=== PATIENT | female | born 1945 | race Caucasian/White ===

== ENCOUNTER 2023-05-28 11:26 | Inpatient (IN) | payer MEDICARE, SELFPAY ==
[2023-05-28] VITALS (38 sets, daily range): BP systolic 150–177; BP diastolic 69–82; PULSE 74–105; RESP 18–31; TEMP 36.7–37; O2SAT 93–100
--- NOTE | ~2023-05-28 | XR_ITS ---
EXAMINATION: XR chest 1V portable DATE: 05/28/2023 13:15 INDICATION: Cough. Shortness of breath. TECHNIQUE: A single frontal view of the chest was obtained. COMPARISON: None. FINDINGS: There are lucencies in the lungs, consistent with emphysema. Heather B lines are noted, cons istent with mild pulmonary edema. There is a small right pleural effusion. No pneumothorax. The heart size is normal. Median sternotomy wires and mediastinal surgical clips are seen, likely from prior c oronary artery bypass grafting. IMPRESSION: 1. Mild pulmonary edema. 2. Emphysema. 3. Small right pleural effusion. Reviewed, dictated and finalized at location A.
--- NOTE | 2023-05-28 12:22 | ED.URI ---
HPI - URI/Sore Throat General Chief Complaint: Upper Respiratory Infection Stated Complaint: poss pneumonia Time Seen by Provider: 05/28/23 11:48 Source: patient, EMS, RN notes reviewed and old records reviewed Mode of arrival: EMS History of Present Illness HPI Narrative: This is a 77 year old female with history of COPD, chronic respiratory failure, 2 L NC , hypertension who presents for evaluation of shortness of breath. She reports shortness of breath since . She reports it is getting harder to breath. She reports cough, nausea and congestion. She also reports she was told at nursing facility that she had a fever. She denies chest pain. MD elicited complaint: cough Pertinent past history: COPD Related Data Home Medications Medication Instructions Recorded Confirmed albuterol sulfate 90 mcg/actuation 1 inh inhalation Q4-6H PRN 06/30/22 05/28/23 breath activated powder Shortness Of Breath Or Wheezing inhaler,sensor (Proair Digihaler) aspirin 81 mg tablet,delayed 81 mg PO DAILY 06/30/22 05/28/23 release fluticasone fur. 100 mcg-umeclid 1 inh inhalation DAILY 06/30/22 05/28/23 62.5 mcg-vilant 25 mcg inhalat.powder (Trelegy Ellipta) levothyroxine 50 mcg capsule 50 mcg PO DAILY 06/30/22 05/28/23 metoprolol tartrate 25 mg tablet 12.5 mg PO BID 06/30/22 05/28/23 ondansetron 8 mg disintegrating 8 mg PO Q12H PRN Nausea And 06/30/22 05/28/23 tablet Vomiting vilazodone 20 mg tablet (Viibryd) 20 mg PO DAILY 06/30/22 05/28/23 diphenoxylate-atropine 2.5 1 tablet PO TID PRN Diarrhea 05/28/23 05/28/23 mg-0.025 mg tablet (Lomotil) Allergies Allergy/AdvReac Type Severity Reaction Status Date / Time amoxicillin AdvReac Intermediate Unknown Verified 05/28/23 11:36 levofloxacin [From Levaquin] AdvReac Intermediate Unknown Verified 05/28/23 11:36 Sulfa (Sulfonamide AdvReac Intermediate Unknown Verified 05/28/23 11:36 Antibiotics) voriconazole Allergy Severe Hallucinati Uncoded 05/28/23 11:36 ng potassium clavulanate AdvReac Intermediate Unknown Uncoded 05/28/23 11:36 Review of Systems Constitutional: Constitutional: Reports fever(s) and Denies weakness Cardiovascular: Cardiovascular: Denies syncope, Denies rapid heart rate, Denies irregular heart rhythm, Denies leg edema and Reports dyspnea Respiratory: Respiratory: Denies chest congestion, Reports cough, Denies hemoptysis, Denies excessive phlegm production and Reports dyspnea Gastrointestinal: Gastrointestinal: Denies abdominal pain, Denies hematochezia, Denies diarrhea, Reports nausea and Denies vomiting Genitourinary: Genitourinary: Denies hematuria and Denies dysuria Musculoskeletal: Musculoskeletal: Denies joint swelling, Denies loss of height and Denies muscle weakness Neurologic: Denies syncope, Denies focal weakness and Denies weakness PMFSH Past Medical History Medical History Anxiety Arthritis Chronic obstructive pulmonary disease Coronary artery disease Generalized osteoarthritis of multiple sites Hypertension Hypothyroidism Irritable bowel syndrome Osteoporosis, post-menopausal Systemic lupus erythematosus Surgical History Surgical History (Updated 05/28/23 @ 15:44 by Maryana Sterling PA-C) History of cataract extraction History of coronary artery bypass graft x 3 Family History Family History Father Carcinoma of colon Diabetes mellitus Hypertension Depression Mother Hypertension Diabetes mellitus Thyroid disorder Sibling Breast cancer Diabetes mellitus Social History Social History (Updated 05/28/23 @ 15:45 by Maryana Sterling PA-C) Social History: Surrogate medical decision maker: Code status: Full code. Smoking status: Unknown if ever smoked Alcohol intake: former Substance use: never Substance use type: does not use Lack of Transportation: No Lack of Food: Never True
--- NOTE | 2023-05-28 12:24 | ECG_ITS ---
Measurements Intervals [place] Rate: 81 P: 104 LA: 137 QRS: 65 QRSD: 90 T: 68 QT: 388 QTc: 451 Interpretive Statements SINUS RHYTHM NO PREVIOUS ECG AVAILABLE FOR COMPARISON Electronically Signed On 05-28-2023 13:03:33 CDT by Jadon Harper M.D.
[2023-05-28] MEDS: IPRATROPIUM BR 0.02% INH SOLN 0.5 MG/2.5 ML VIAL INHALATION (12:30)
[2023-05-28] MEDS: ALBUTEROL SULFATE NEB 2.5 MG/3 ML INH INHALATION ×2 (12:31→20:05)
[2023-05-28 12:49] LABS: Alveolar/Arterial O2 Gradient 58.7 mmHg; Base Excess ABG 4.3 mEq/l (+/-2.0); Carboxyhemoglobin 0.1 % THb (0-2.0); Fractional Inspired Oxygen 28 %; HCO3 ABG 28.5 mEq/l (22.0-26.0); Methemoglobin ABG 0.2 %THb (0-1.5); Oxygen Content ABG 15.2 %vol (16.0-22.0); Oxygen Saturation ABG 97.4 % (95.0-100.0); Oxyhemoglobin 96.4 % THb (90.0-100.0); PO2 ABG 92.6 mmHg (80.0-100.0); PO2 FiO2 Ratio Arterial Blood 3.31 %; Reduced Hemoglobin 3.3 %THb (0-5.0); Total Hemoglobin 11.1 g/dL (12.0-18.0)
[2023-05-28 12:49] LABS: Basophils Percent Auto 0.9 % (0.2-1.2); Eosinophils Absolute Auto 0.1 K/mm3 (0-0.3); Eosinophils Percent Auto 1.3 % (0-4.4); Hematocrit 33.9 % (37.0-47.0); Hemoglobin 10.6 g/dL (12.0-15.0); Immature Granulocyte Absolute 0.02 K/mm3 (0.00-0.031); Immature Granulocyte Percent A 0.4 % (0-0.5); Lymphocytes Percent Auto 15.4 % (18.3-44.2); Mean Corpuscular HGB Conc 31.3 g/dl (32-36); Mean Corpuscular Hemoglobin 27.7 pg (26-34); Mean Corpuscular Volume 88.7 fl (80-100); Monocytes Absolute Auto 0.6 K/mm3 (0.1-0.6); Monocytes Percent Auto 12.1 % (2.6-8.5); Neutrophils Absolute Auto 3.2 K/mm3 (1.3-6.7); Neutrophils Percent Auto 69.9 % (45.5-73.1); Platelet Count Result 248 k/mm3 (150-375); Red Blood Count 3.82 M/mm3 (4.2-5.4); Red Cell Distribution Width 14.5 % (11.5-14.5); White Blood Count 4.6 K/mm3 (4.5-10.0)
[2023-05-28 12:50] LABS: Device NASAL CANNULA; Site Drawn LEFT BRACHIAL
[2023-05-28 12:59] LABS: Alanine Aminotransferase 14 U/L (6-35); Albumin Level 3.7 g/dL (3.5-5.1); Alkaline Phosphatase 88 U/L (38-126); Anion Gap 7 mmol/L (8-16); Aspartate Amino Transferase 34 U/L (14-36); Bilirubin,Total 0.7 mg/dL (0.2-1.3); Blood Urea Nitrogen 12 mg/dL (7-17); Calcium 8.5 mg/dL (8.4-10.2); Carbon Dioxide 31 mmol/L (22-30); Chloride 97 mmol/L (98-107); Estimated CRCL calculation 70 ml/min; Estimated Glomerular Filt Rate > 60; Glucose 87 mg/dL (65-110); Lipase 92 U/L (23-300); Potassium 3.5 mmol/L (3.4-5.0); Sodium 135 mmol/L (137-145)
[2023-05-28 13:01] LABS: Prothrombin Time 13.9 Seconds (11.1-14.7)
[2023-05-28 13:02] LABS: Partial Thromboplastin Time 28.2 SECONDS (22.3-36.8)
[2023-05-28 13:10] LABS: NT Pro B Type Natriuretic Pept 1880 pg/mL (19.9-100); Troponin I 0.015 ng/mL (0.000-0.034)
[2023-05-28 13:24] LABS: Influenza A QL RT-PCR Negative (Negative); Influenza B QL RT-PCR Negative (Negative); SARS-CoV-2 RNA PCR Positive (Negative)
--- NOTE | 2023-05-28 15:38 | PM.IMHP ---
H&P: HPI History of Present Illness Date/Time: 05/28/23 17:15 Chief Complaint: Shortness of breath, pleural effusion. Narrative: This is a 77-year-old female with hypertension, hyperlipidemia, coronary artery disease, hypothyroidism, lupus, chronic obstructive pulmonary disease, chronic respiratory failure on 2 L nasal cannula, and anxiety who presented to the emergency department via EMS from [facility] for evaluation of shortness of breath and pleural effusion. The patient provides the following history. She has not been feeling well for several days with body aches, nonproductive cough, chest congestion, and nausea. She has felt increasingly short of breath on lesser and lesser exertion the last several days which prompted a chest x-ray to be done at the facility. She was sent in for evaluation after the chest x-ray reportedly showed a large right-sided pleural effusion. She was afebrile on arrival with stable vital signs. SARS-CoV-2 by PCR was positive. A repeat chest x-ray done at this facility showed mild pulmonary edema, emphysema, and a small right pleural effusion. Labs were significant for a troponin of 0.015, proBNP 1880, and WBC count of 4.6. EKG shows sinus rhythm without acute ST segment changes. She was given a nebulizer treatment in the ED and furosemide 40 mg IV x1 with some improvement in her shortness of breath and she is being admitted in this setting for further treatment. Review of Systems Review of Systems: Twelve systems were reviewed and are negative except for as per HPI. [facility] Past Medical History Medical History (Updated 05/28/23 @ 23:34 by Maryana Sterling PA-C) Anxiety Arthritis Chronic obstructive pulmonary disease Chronic respiratory failure with hypoxia, on home oxygen therapy Coronary artery disease Generalized osteoarthritis of multiple sites Hypertension Hypothyroidism Irritable bowel syndrome Osteoporosis, post-menopausal Systemic lupus erythematosus Surgical History Surgical History History of cataract extraction History of coronary artery bypass graft x 3 Family History Family History Father Carcinoma of colon Diabetes mellitus Hypertension Depression Mother Hypertension Diabetes mellitus Thyroid disorder Sibling Breast cancer Diabetes mellitus Social History Social History (Updated 05/28/23 @ 23:39 by Maryana Sterling PA-C) Social History: Surrogate medical decision maker: Manoj Cramer. Code status: Do not resuscitate. Smoking status: Former smoker Alcohol intake: former Substance use: never Substance use type: does not use Lack of Transportation: No Lack of Food: Never True Current Housing: I Have Housing Concerned About Future Housing: No Difficulty Paying Gas/Electric Bills: No Difficulty Paying for Meds: No Currently Unemployed: No Education: High School Diploma/GED Difficulty w/ Childcare or Family Care: No Additional living arrangements comments: for nearly 10 years. She has 1 daughter but they are out of touch. Currently at [facility]. 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 Spiritual care concerns: No Meds Home Medications and Allergies Home Medications Medication Instructions Recorded Confirmed Type albuterol sulfate 90 mcg/actuation 1 inh inhalation Q4-6H PRN 06/30/22 05/28/23 History breath activated powder Shortness Of Breath Or Wheezing inhaler,sensor (Proair Digihaler) aspirin 81 mg tablet,delayed 81 mg PO DAILY 06/30/22 05/28/23 History release fluticasone fur. 100 mcg-umeclid 1 inh inhalation DAILY 06/30/22 05/28/23 History 62.5 mcg-vilant 25 mcg inhalat.powder (Trelegy Ellipta) hydroxychloroquine 200 mg tablet 400 mg PO DAILY #180 tabs 06/30/22 05/28/23 Rx (Plaquenil) levothyroxine 50 mcg capsule
[2023-05-28] MEDS: FUROSEMIDE INJ 40 MG/4 ML VIAL IV PUSH (20:41)
[2023-05-28] MEDS: METOPROLOL TARTRATE 12.5 MG TABLET PO (22:40)
[2023-05-29] VITALS (19 sets, daily range): BP systolic 147–158; BP diastolic 55–78; PULSE 65–100; RESP 14–20; TEMP 36.6–37.3; O2SAT 98–99; BMI 18.1
[2023-05-29] MEDS: ACETAMINOPHEN 325 MG TABLET 650 MG PO (00:24)
[2023-05-29] MEDS: DEXAMETHASONE 2 MG TABLET 6 MG PO ×2 (00:25→09:05)
[2023-05-29] MEDS: hydrOXYzine HCL 10 MG TABLET PO ×2 (00:25→17:21)
[2023-05-29] MEDS: REMDESIVIR 200 MG/NS 250 ML 200 MG/250 ML BAG 250 MG IVPB (01:17)
[2023-05-29] MEDS: ALBUTEROL SULFATE NEB 2.5 MG/3 ML INH INHALATION ×4 (01:45→20:25)
[2023-05-29] MEDS: LEVOTHYROXINE SODIUM 50 MCG TABLET PO (05:21)
[2023-05-29 05:26] LABS: Basophils Percent Auto 0.2 % (0.2-1.2); Hematocrit 33.8 % (37.0-47.0); Hemoglobin 10.5 g/dL (12.0-15.0); Immature Granulocyte Absolute 0.03 K/mm3 (0.00-0.031); Immature Granulocyte Percent A 0.7 % (0-0.5); Lymphocytes Percent Auto 11.7 % (18.3-44.2); Mean Corpuscular HGB Conc 31.1 g/dl (32-36); Mean Corpuscular Hemoglobin 27.6 pg (26-34); Mean Corpuscular Volume 88.7 fl (80-100); Monocytes Absolute Auto 0.1 K/mm3 (0.1-0.6); Neutrophils Absolute Auto 3.6 K/mm3 (1.3-6.7); Neutrophils Percent Auto 84.4 % (45.5-73.1); Platelet Count Result 245 k/mm3 (150-375); Red Blood Count 3.81 M/mm3 (4.2-5.4); Red Cell Distribution Width 14.4 % (11.5-14.5); White Blood Count 4.3 K/mm3 (4.5-10.0)
[2023-05-29 05:39] LABS: Alanine Aminotransferase 13 U/L (6-35); Albumin Level 3.6 g/dL (3.5-5.1); Alkaline Phosphatase 78 U/L (38-126); Anion Gap 5 mmol/L (8-16); Aspartate Amino Transferase 24 U/L (14-36); Bilirubin,Total 0.5 mg/dL (0.2-1.3); Blood Urea Nitrogen 15 mg/dL (7-17); CRP 3.6 mg/dL (<1.0); Carbon Dioxide 35 mmol/L (22-30); Chloride 96 mmol/L (98-107); Estimated CRCL calculation 55 ml/min; Estimated Glomerular Filt Rate > 60; Glucose 162 mg/dL (65-110); Lactate Dehydrogenase 247 U/L (120-246); Potassium 3.4 mmol/L (3.4-5.0); Sodium 136 mmol/L (137-145)
[2023-05-29 06:11] LABS: Thyroid Stimulating Hormone Reflex 0.481 uIU/mL (0.465-4.68)
[2023-05-29] MEDS: FLUTICASONE/UMECLIDIN/VILANTER 100-62.5-25 MCG ELLIPTA 1 PUFF INHALATION (08:13)
[2023-05-29] MEDS: HYDROXYCHLOROQUINE SULFATE 200 MG TABLET 400 MG PO (09:04)
[2023-05-29] MEDS: ASPIRIN 81 MG ENTERIC TABLET PO (09:05)
[2023-05-29] MEDS: METOPROLOL TARTRATE 12.5 MG TABLET PO ×2 (09:05→21:18)
[2023-05-29] MEDS: FUROSEMIDE INJ 40 MG/4 ML VIAL IV PUSH (09:05)
--- NOTE | 2023-05-29 12:23 | PM.IMPN ---
Progress Note: A&P Assessment and Plan (1) COVID: Code(s): U07.1 - COVID-19 Status: Acute Assessment and Plan: Place in COVID19 isolation precautions, cardiac monitoring, and continuous pulse ox Chest x-ray with mild pulmonary edema, emphysema and small pleural effusion Oxygen via NC; wean as tolerated. Keep spO2 greater than 91% Pt is a candidate for Remdesivir and Dexamethasone, continue treatment according to suggested guidelines. Remdesivir 200 mg IV x1, then 100 mg IV x4 days, dexamethasone 6 mg IV daily x 10 days, or until discharge Albuterol neb q.6 hours PPI GI prophylaxis (2) Pulmonary edema: Code(s): J81.1 - Chronic pulmonary edema Status: Acute Assessment and Plan: chest x-ray revealing mild pulmonary edema. Patient given 2 rounds of IV Lasix with improvement of her breathing. BNP 1880 (3) Chronic obstructive pulmonary disease: Code(s): J44.9 - Chronic obstructive pulmonary disease, unspecified Status: Acute Assessment and Plan: Patient does not appear in active exacerbation. She chronically wears 2 L of oxygen (4) Systemic lupus erythematosus: Code(s): M32.9 - Systemic lupus erythematosus, unspecified Status: Acute Assessment and Plan: hydroxychloroquine continued (5) Hypothyroidism: Code(s): E03.9 - Hypothyroidism, unspecified Status: Acute Assessment and Plan: continue Synthroid (6) Coronary artery disease: Code(s): I25.10 - Atherosclerotic heart disease of [place] coronary artery without angina pectoris Status: Acute Assessment and Plan: continue aspirin Subjective Date/time seen: 05/29/23 12:23 Interval history: Patient states that she feels as if she is breathing better today although she does have chronic shortness of breath and on 2 L of oxygen home. She states that she uses a wheelchair and/or walker for mobility. Patient does have a chronic cough that is productive. She states the sputum is typically white or clear in this is not changed. She is not appear overtly ill and is in good spirits today. Will order PT and OT for her. Exam Narrative: GENERAL: Comfortable, no acute distress HENMT: moist mucous membranes EYES: EOM intact b/l NECK: no lymphadenopathy RESPIRATORY: distant breath sounds throughout CARDIO: RRR GI: soft, nontender, bowel sounds present SKIN: no rashes EXTREMITIES: no edema, redness or tenderness Objective Data Vital Signs Vital Signs: Vital Signs - 24 hr 05/28/23 12:43 05/28/23 13:00 05/28/23 12:30 Temperature Pulse Rate 82 99 90 Respiratory Rate 27 H 24 H 20 Blood Pressure Pulse Oximetry Oxygen Delivery Oxygen Flow Rate Fraction of Inspired Oxygen 05/28/23 12:45 05/28/23 13:00 05/28/23 17:17 Temperature Pulse Rate 94 101 H 103 H Respiratory Rate 24 H Blood Pressure Pulse Oximetry 100 99 Oxygen Delivery Oxygen Flow Rate Fraction of Inspired Oxygen 05/28/23 17:27 05/28/23 17:27 05/28/23 13:15 Temperature Pulse Rate 83 100 Respiratory Rate 28 H Blood Pressure Pulse Oximetry 100 Oxygen Delivery Nasal Cannula Oxygen Flow Rate 2 Fraction of Inspired Oxygen 05/28/23 13:33 05/28/23 13:34 05/28/23 13:37 Temperature Pulse Rate 105 H 105 H 95 Respiratory Rate 19 29 H 30 H Blood Pressure Pulse Oximetry 96 95 Oxygen Delivery Oxygen Flow Rate Fraction of Inspired Oxygen 05/28/23 13:40 05/28/23 13:45 05/28/23 14:00 Temperature Pulse Rate 98 96 96 Respiratory Rate 25 H 31 H 30 H Blood Pressure 154/72 H Pulse Oximetry 99 99 93 Oxygen Delivery Oxygen Flow Rate Fraction of Inspired Oxygen 05/28/23 14:01 05/28/23 14:15 05/28/23 14:21 Temperature Pulse Rate 95 92 90 Respiratory Rate 24 H 27 H 27 H Blood Pressure Pulse Oximetry 97 Oxygen Delivery Oxygen Flow Rate Fraction
--- NOTE | 2023-05-29 17:00 | PC.NURSE ---
Pt very tearful and anxious, worried about returning back to [facility] & the living conditions there. Pt states she does not have anything to do with family and feels like she was dumped here. Pt is requesting something to make her feel better, denies any thoughts of hurting herself. Hydroxyzine ordered by PA, hospital tester compressed gases in room speaking w/ pt. Care coordination made aware about discharge preferences.
[2023-05-29] MEDS: REMDESIVIR 100 MG/NS 250 ML 100 MG/250 ML BAG 250 MG IVPB (21:17)
[2023-05-30] VITALS (21 sets, daily range): BP systolic 130–149; BP diastolic 62–70; PULSE 63–86; RESP 15–22; TEMP 36.5–36.7; O2SAT 99–100
[2023-05-30] MEDS: hydrOXYzine HCL 10 MG TABLET PO ×3 (00:25→23:02)
[2023-05-30] MEDS: ACETAMINOPHEN 325 MG TABLET 650 MG PO ×2 (01:17→16:29)
[2023-05-30] MEDS: ALBUTEROL SULFATE NEB 2.5 MG/3 ML INH INHALATION ×4 (02:04→19:54)
[2023-05-30] MEDS: LEVOTHYROXINE SODIUM 50 MCG TABLET PO (05:44)
[2023-05-30 05:57] LABS: Basophils Percent Auto 0.2 % (0.2-1.2); Immature Granulocyte Absolute 0.01 K/mm3 (0.00-0.031); Immature Granulocyte Percent A 0.2 % (0-0.5); Lymphocytes Absolute Auto 0.82 K/mm3 (0.9-3.2); Mean Corpuscular HGB Conc 32.3 g/dl (32-36); Mean Corpuscular Hemoglobin 28.1 pg (26-34); Mean Corpuscular Volume 87.1 fl (80-100); Mean Platelet Volume 10.1 fl (7.4-10.4); Monocytes Absolute Auto 0.6 K/mm3 (0.1-0.6); Monocytes Percent Auto 12.1 % (2.6-8.5); Neutrophils Absolute Auto 3.2 K/mm3 (1.3-6.7); Neutrophils Percent Auto 69.5 % (45.5-73.1); Platelet Count Result 270 k/mm3 (150-375); Red Blood Count 3.56 M/mm3 (4.2-5.4); Red Cell Distribution Width 14.1 % (11.5-14.5); White Blood Count 4.6 K/mm3 (4.5-10.0)
[2023-05-30 06:11] LABS: Prothrombin Time 13.1 Seconds (11.1-14.7)
[2023-05-30 06:15] LABS: Alanine Aminotransferase 11 U/L (6-35); Albumin Level 3.4 g/dL (3.5-5.1); Alkaline Phosphatase 67 U/L (38-126); Anion Gap 4 mmol/L (8-16); Aspartate Amino Transferase 23 U/L (14-36); Bilirubin,Total 0.3 mg/dL (0.2-1.3); Blood Urea Nitrogen 25 mg/dL (7-17); Calcium 7.9 mg/dL (8.4-10.2); Carbon Dioxide 35 mmol/L (22-30); Chloride 97 mmol/L (98-107); Estimated CRCL calculation 47 ml/min; Estimated Glomerular Filt Rate > 60; Glucose 113 mg/dL (65-110); Potassium 2.8 mmol/L (3.4-5.0); Sodium 136 mmol/L (137-145)
[2023-05-30 07:11] LABS: Magnesium 1.6 mg/dL (1.6-2.3)
[2023-05-30] MEDS: FLUTICASONE/UMECLIDIN/VILANTER 100-62.5-25 MCG ELLIPTA 1 PUFF INHALATION (07:16)
[2023-05-30] MEDS: POTASSIUM CHLORIDE 20 MEQ ER TABLET 40 MEQ PO (07:16)
[2023-05-30] MEDS: MAGNESIUM SULFATE 3GM/D5W100ML 3 GM/100 ML BAG IVPB (08:02)
[2023-05-30] MEDS: POTASSIUM CHLORIDE 20 MEQ ER TABLET 40 MEQ (08:03)
[2023-05-30] MEDS: PANTOPRAZOLE SODIUM IV 40 MG VIAL IV PUSH (08:03)
[2023-05-30] MEDS: METOPROLOL TARTRATE 12.5 MG TABLET PO ×2 (08:10→20:46)
[2023-05-30] MEDS: HYDROXYCHLOROQUINE SULFATE 200 MG TABLET 400 MG PO (08:10)
[2023-05-30] MEDS: DEXAMETHASONE 2 MG TABLET 6 MG PO (08:11)
[2023-05-30] MEDS: ASPIRIN 81 MG ENTERIC TABLET PO (08:11)
[2023-05-30] MEDS: POTASSIUM CHLORIDE INJ 40 MEQ in SODIUM CHLORIDE 0.9% IV 500 ML 130 MEQ IVPB (09:16)
--- NOTE | 2023-05-30 09:27 | PCPTNOTE ---
Attempted PT evaluation. Pt refused due to nausea. RN aware. Will follow.
--- NOTE | 2023-05-30 11:53 | PM.IMPN ---
Progress Note: A&P Assessment and Plan (1) COVID: Code(s): U07.1 - COVID-19 Status: Acute Assessment and Plan: Place in COVID19 isolation precautions, cardiac monitoring, and continuous pulse ox Chest x-ray with mild pulmonary edema, emphysema and small pleural effusion Oxygen via NC; wean as tolerated. Keep spO2 greater than 91% Pt is a candidate for Remdesivir and Dexamethasone, continue treatment according to suggested guidelines. Remdesivir 200 mg IV x1, then 100 mg IV x4 days, dexamethasone 6 mg IV daily x 10 days, or until discharge Albuterol neb q.6 hours PPI GI prophylaxis (2) Pulmonary edema: Code(s): J81.1 - Chronic pulmonary edema Status: Acute Assessment and Plan: chest x-ray revealing mild pulmonary edema. Patient given 2 rounds of IV Lasix with improvement of her breathing. BNP 1880 (3) Chronic obstructive pulmonary disease: Code(s): J44.9 - Chronic obstructive pulmonary disease, unspecified Status: Acute Assessment and Plan: Patient does not appear in active exacerbation. She chronically wears 2 L of oxygen (4) Systemic lupus erythematosus: Code(s): M32.9 - Systemic lupus erythematosus, unspecified Status: Acute Assessment and Plan: hydroxychloroquine continued (5) Hypothyroidism: Code(s): E03.9 - Hypothyroidism, unspecified Status: Acute Assessment and Plan: continue Synthroid (6) Coronary artery disease: Code(s): I25.10 - Atherosclerotic heart disease of [place] coronary artery without angina pectoris Status: Acute Assessment and Plan: continue aspirin (7) Hypokalemia: Code(s): E87.6 - Hypokalemia Status: Acute Assessment and Plan: Patient potassium today 2.8. K rider given Recheck potassium and continue to replace as necessary. Subjective Date/time seen: 05/30/23 11:53 Interval history: patient states that she is feeling much better today. Care coordination working on getting her different living arrangements although not sure if this will work out or not. Patient states that her cough and shortness of breath or both improved. PT and OT consulted on the patient. Exam Narrative: GENERAL: Comfortable, no acute distress HENMT: moist mucous membranes EYES: EOM intact b/l NECK: no lymphadenopathy RESPIRATORY: distant breath sounds throughout CARDIO: RRR GI: soft, nontender, bowel sounds present SKIN: no rashes EXTREMITIES: no edema, redness or tenderness Objective Data Vital Signs Vital Signs: Vital Signs - 24 hr 05/29/23 14:00 05/29/23 14:43 05/29/23 14:54 Temperature 99.2 F Pulse Rate 65 77 78 Respiratory Rate 15 20 20 Blood Pressure 147/55 H Pulse Oximetry 99 Oxygen Delivery Oxygen Flow Rate Fraction of Inspired Oxygen 05/29/23 12:00 05/29/23 16:00 05/29/23 20:25 Temperature Pulse Rate 71 96 77 Respiratory Rate 20 Blood Pressure Pulse Oximetry Oxygen Delivery Oxygen Flow Rate Fraction of Inspired Oxygen 05/29/23 20:36 05/29/23 21:18 05/29/23 22:00 Temperature 98.3 F Pulse Rate 79 91 88 Respiratory Rate 20 18 Blood Pressure 155/78 H Pulse Oximetry 99 Oxygen Delivery Oxygen Flow Rate Fraction of Inspired Oxygen 05/29/23 20:00 05/29/23 20:00 05/30/23 00:00 Temperature Pulse Rate 100 88 69 Respiratory Rate 18 Blood Pressure Pulse Oximetry 99 Oxygen Delivery Nasal Cannula Oxygen Flow Rate 2 Fraction of Inspired Oxygen 28 05/30/23 02:04 05/30/23 02:18 05/30/23 04:00 Temperature Pulse Rate 72 77 67 Respiratory Rate 20 20 Blood Pressure Pulse Oximetry Oxygen Delivery Oxygen Flow Rate Fraction of Inspired Oxygen 05/30/23 06:00 05/30/23 07:19 05/30/23 07:20 Temperature 98.1 F Pulse Rate 66 68 Respiratory Rate 18 22 H Blood Pressure 149/62 H Pulse Oximetry 100
[2023-05-30 13:27] LABS: Appearance Urine Clear (Clear); Bilirubin Urine Negative (Negative); Blood Urine Negative (Negative); Color Urine Yellow (Yellow); Glucose Urine UA Negative (Negative); Ketones Urine Negative (Negative); Leukocyte Esterase Ur Trace LEU/UL (Negative); Nitrate Urine Negative (Negative); Protein Urine Trace mg/dL (Negative); Specific Grav Ur 1.026 (1.001-1.035); pH Urine 5.5 (5.0-9.0)
[2023-05-30 14:10] LABS: Add Urine Microscopic? YES
[2023-05-30 14:11] LABS: Squamous Epithelial Cell Urine Many /hpf (Few)
[2023-05-30 14:13] LABS: WBC Urine 16-20 /hpf
[2023-05-30 14:14] LABS: Mucus Urine Present /lpf
[2023-05-30 14:15] LABS: Bacteria Urine 2+ /hpf
[2023-05-30 14:35] LABS: Potassium 4.3 mmol/L (3.4-5.0)
[2023-05-30] MEDS: REMDESIVIR 100 MG/NS 250 ML 100 MG/250 ML BAG 250 MG IVPB (21:15)
[2023-05-31] VITALS (20 sets, daily range): BP systolic 102–144; BP diastolic 64–80; PULSE 54–89; RESP 17–21; TEMP 36.3–36.9; O2SAT 98–100
[2023-05-31] MEDS: ALBUTEROL SULFATE NEB 2.5 MG/3 ML INH INHALATION ×4 (02:19→20:33)
[2023-05-31] MEDS: ONDANSETRON INJ 4 MG/2 ML VIAL IV PUSH (03:14)
[2023-05-31 05:14] LABS: Hemoglobin 9.3 g/dL (12.0-15.0); Mean Corpuscular Hemoglobin 27.1 pg (26-34); Mean Corpuscular Volume 90.4 fl (80-100); Platelet Count Result 280 k/mm3 (150-375); Red Blood Count 3.43 M/mm3 (4.2-5.4); Red Cell Distribution Width 14.8 % (11.5-14.5); White Blood Count 5.1 K/mm3 (4.5-10.0)
[2023-05-31 05:32] LABS: Alanine Aminotransferase 11 U/L (6-35); Albumin Level 3.1 g/dL (3.5-5.1); Alkaline Phosphatase 62 U/L (38-126); Anion Gap -1 mmol/L (8-16); Aspartate Amino Transferase 24 U/L (14-36); Bilirubin,Total 0.3 mg/dL (0.2-1.3); Blood Urea Nitrogen 24 mg/dL (7-17); Calcium 7.7 mg/dL (8.4-10.2); Carbon Dioxide 34 mmol/L (22-30); Chloride 102 mmol/L (98-107); Estimated CRCL calculation 55 ml/min; Estimated Glomerular Filt Rate > 60; Glucose 100 mg/dL (65-110); Potassium 3.9 mmol/L (3.4-5.0); Sodium 135 mmol/L (137-145)
[2023-05-31] MEDS: LEVOTHYROXINE SODIUM 50 MCG TABLET PO (06:05)
--- NOTE | 2023-05-31 07:56 | P.PNIM_ITS ---
Progress Note: A&P Assessment and Plan (1) COVID: Code(s): U07.1 - COVID-19 Status: Acute Assessment and Plan: 05/30/23: * Place in COVID19 isolation precautions, cardiac monitoring, and continuous pulse ox * Chest x-ray with mild pulmonary edema, emphysema and small pleural effusion * Oxygen via NC; wean as tolerated. Keep spO2 greater than 91% * Pt is a candidate for Remdesivir and Dexamethasone, continue treatment according to suggested guidelines. Remdesivir 200 mg IV x1, then 100 mg IV x4 days, dexamethasone 6 mg IV daily x 10 days, or until discharge * Albuterol neb q.6 hours * PPI GI prophylaxis 05/31/23: * this is day 4 of 5 of the remdesivir, patient continues dexamethasone 6 mg IV daily * continue albuterol neb treatments q.6 hours * patient currently on 2 L nasal cannula which is her baseline, keep SpO2 greater than 90% * discussed plan with case management for discharge needs (2) Pulmonary edema: Code(s): J81.1 - Chronic pulmonary edema Status: Acute Assessment and Plan: 05/30/23: * chest x-ray revealing mild pulmonary edema. * Patient given 2 rounds of IV Lasix with improvement of her breathing. * BNP 1880 05/31/23: * patient received 2 rounds of IV Lasix, lungs clear to auscultation today. * Will continue to monitor for signs of pulmonary edema (3) Chronic obstructive pulmonary disease: Code(s): J44.9 - Chronic obstructive pulmonary disease, unspecified Status: Acute Assessment and Plan: 05/30/23: * Patient does not appear in active exacerbation. * She chronically wears 2 L of oxygen 05/31/23: * no change to current treatment plan * patient back to baseline of 2 L nasal cannula (4) Systemic lupus erythematosus: Code(s): M32.9 - Systemic lupus erythematosus, unspecified Status: Acute Assessment and Plan: 05/30/23: * hydroxychloroquine continued 05/31/23: * no change to current treatment plan (5) Hypothyroidism: Code(s): E03.9 - Hypothyroidism, unspecified Status: Acute Assessment and Plan: 05/30/23: * continue Synthroid 05/31/23: * no change to current treatment plan (6) Coronary artery disease: Code(s): I25.10 - Atherosclerotic heart disease of [place] coronary artery without angina pectoris Status: Acute Assessment and Plan: 05/30/23: * continue aspirin 05/31/23: * no change to current treatment plan (7) Hypokalemia: Code(s): E87.6 - Hypokalemia Status: Acute Assessment and Plan: 05/30/23: * Patient potassium today 2.8. * K rider given * Recheck potassium and continue to replace as necessary 05/31/23: * potassium 3.9 * continue to monitor daily lab Time Spent With Patient Time with patient: Greater than 35 minutes Subjective Date/time seen: 05/31/23 07:56 Interval history: This is a 77 year old female who presented to the ER via EMS from [facility] with shortness of breath and pleural effusion. Patient had respiratory panel done and was positive for COVID. CXR revealed mild pulmonary edema, emphysema, and small right pleural effusion. She was given nebulizer treatment and Lasix in the ED. On admission she was started on Remdesivir and Dexamethasone. 05/30/2023: patient states that she is feeling much better today. Care coordination working on getting her different living arrangements
--- NOTE | 2023-05-31 07:56 | PM.IMPN ---
Progress Note: A&P Assessment and Plan (1) COVID: Code(s): U07.1 - COVID-19 Status: Acute Assessment and Plan: 05/30/23: Place in COVID19 isolation precautions, cardiac monitoring, and continuous pulse ox Chest x-ray with mild pulmonary edema, emphysema and small pleural effusion Oxygen via NC; wean as tolerated. Keep spO2 greater than 91% Pt is a candidate for Remdesivir and Dexamethasone, continue treatment according to suggested guidelines. Remdesivir 200 mg IV x1, then 100 mg IV x4 days, dexamethasone 6 mg IV daily x 10 days, or until discharge Albuterol neb q.6 hours PPI GI prophylaxis 05/31/23: this is day 4 of 5 of the remdesivir, patient continues dexamethasone 6 mg IV daily continue albuterol neb treatments q.6 hours patient currently on 2 L nasal cannula which is her baseline, keep SpO2 greater than 90% discussed plan with case management for discharge needs (2) Pulmonary edema: Code(s): J81.1 - Chronic pulmonary edema Status: Acute Assessment and Plan: 05/30/23: chest x-ray revealing mild pulmonary edema. Patient given 2 rounds of IV Lasix with improvement of her breathing. BNP 1880 05/31/23: patient received 2 rounds of IV Lasix, lungs clear to auscultation today. Will continue to monitor for signs of pulmonary edema (3) Chronic obstructive pulmonary disease: Code(s): J44.9 - Chronic obstructive pulmonary disease, unspecified Status: Acute Assessment and Plan: 05/30/23: Patient does not appear in active exacerbation. She chronically wears 2 L of oxygen 05/31/23: no change to current treatment plan patient back to baseline of 2 L nasal cannula (4) Systemic lupus erythematosus: Code(s): M32.9 - Systemic lupus erythematosus, unspecified Status: Acute Assessment and Plan: 05/30/23: hydroxychloroquine continued 05/31/23: no change to current treatment plan (5) Hypothyroidism: Code(s): E03.9 - Hypothyroidism, unspecified Status: Acute Assessment and Plan: 05/30/23: continue Synthroid 05/31/23: no change to current treatment plan (6) Coronary artery disease: Code(s): I25.10 - Atherosclerotic heart disease of [place] coronary artery without angina pectoris Status: Acute Assessment and Plan: 05/30/23: continue aspirin 05/31/23: no change to current treatment plan (7) Hypokalemia: Code(s): E87.6 - Hypokalemia Status: Acute Assessment and Plan: 05/30/23: Patient potassium today 2.8. K rider given Recheck potassium and continue to replace as necessary 05/31/23: potassium 3.9 continue to monitor daily lab Time Spent With Patient Time with patient: Greater than 35 minutes Subjective Date/time seen: 05/31/23 07:56 Interval history: This is a 77 year old female who presented to the ER via EMS from [facility] with shortness of breath and pleural effusion. Patient had respiratory panel done and was positive for COVID. CXR revealed mild pulmonary edema, emphysema, and small right pleural effusion. She was given nebulizer treatment and Lasix in the ED. On admission she was started on Remdesivir and Dexamethasone. 05/30/2023: patient states that she is feeling much better today. Care coordination working on getting her different living arrangements although not sure if this will work out or not. Patient states that her cough and shortness of breath or both improved. PT and OT consulted on the patient. 05/31/2023: Patient is very agitated today. She has been frustrated with nursing staff regarding nursing protocols. I validated her concerns today and will get patient advocate involved. Patient states that she does feel better today. She is back to her baseline of 2 L nasal cannula. I did notice level conversing with patient that she became short of breath with u
[2023-05-31] MEDS: hydrOXYzine HCL 10 MG TABLET PO ×3 (07:58→23:19)
[2023-05-31] MEDS: DEXAMETHASONE 2 MG TABLET 6 MG PO (07:58)
[2023-05-31] MEDS: METOPROLOL TARTRATE 12.5 MG TABLET PO ×2 (07:58→21:28)
[2023-05-31] MEDS: HYDROXYCHLOROQUINE SULFATE 200 MG TABLET 400 MG PO (07:59)
[2023-05-31] MEDS: ASPIRIN 81 MG ENTERIC TABLET PO (07:59)
[2023-05-31] MEDS: PANTOPRAZOLE SODIUM IV 40 MG VIAL IV PUSH (08:05)
[2023-05-31] MEDS: FLUTICASONE/UMECLIDIN/VILANTER 100-62.5-25 MCG ELLIPTA 1 PUFF INHALATION (09:45)
--- NOTE | 2023-05-31 11:01 | PCOTNOTE ---
Upon entering the room, Patient is on the phone, seems to be in an in-depth conversation and upset. Therapist left Patient a note stating who she was and that she would be back to attempt therapy services at a later time.
[2023-05-31] MEDS: REMDESIVIR 100 MG/NS 250 ML 100 MG/250 ML BAG 250 MG IVPB (21:35)
[2023-06-01] VITALS (20 sets, daily range): BP systolic 116–134; BP diastolic 53–65; PULSE 55–77; RESP 16–20; TEMP 36.6–37.1; O2SAT 97–100
[2023-06-01] MEDS: ALBUTEROL SULFATE NEB 2.5 MG/3 ML INH INHALATION ×4 (02:54→21:22)
[2023-06-01 05:11] LABS: Hematocrit 31.9 % (37.0-47.0); Hemoglobin 9.7 g/dL (12.0-15.0); Mean Corpuscular HGB Conc 30.4 g/dl (32-36); Mean Corpuscular Hemoglobin 27.1 pg (26-34); Mean Corpuscular Volume 89.1 fl (80-100); Platelet Count Result 279 k/mm3 (150-375); Red Blood Count 3.58 M/mm3 (4.2-5.4); Red Cell Distribution Width 14.6 % (11.5-14.5); White Blood Count 5.5 K/mm3 (4.5-10.0)
[2023-06-01] MEDS: LEVOTHYROXINE SODIUM 50 MCG TABLET PO (05:25)
[2023-06-01] MEDS: ONDANSETRON INJ 4 MG/2 ML VIAL IV PUSH ×2 (05:25→23:58)
[2023-06-01 05:26] LABS: Anion Gap 3 mmol/L (8-16); Blood Urea Nitrogen 20 mg/dL (7-17); Calcium 7.8 mg/dL (8.4-10.2); Carbon Dioxide 30 mmol/L (22-30); Chloride 101 mmol/L (98-107); Estimated CRCL calculation 64 ml/min; Estimated Glomerular Filt Rate > 60; Glucose 94 mg/dL (65-110); Sodium 134 mmol/L (137-145)
[2023-06-01 05:44] LABS: Prothrombin Time 13.5 Seconds (11.1-14.7)
[2023-06-01] MEDS: DEXAMETHASONE 2 MG TABLET 6 MG PO (08:02)
[2023-06-01] MEDS: ASPIRIN 81 MG ENTERIC TABLET PO (08:03)
[2023-06-01] MEDS: HYDROXYCHLOROQUINE SULFATE 200 MG TABLET 400 MG PO (08:03)
[2023-06-01] MEDS: PANTOPRAZOLE SODIUM IV 40 MG VIAL IV PUSH (08:03)
[2023-06-01] MEDS: METOPROLOL TARTRATE 12.5 MG TABLET PO ×2 (08:03→21:20)
[2023-06-01] MEDS: FLUTICASONE/UMECLIDIN/VILANTER 100-62.5-25 MCG ELLIPTA 1 PUFF INHALATION (08:18)
[2023-06-01] MEDS: hydrOXYzine HCL 10 MG TABLET PO ×2 (10:02→15:45)
--- NOTE | 2023-06-01 10:38 | P.PNIM_ITS ---
Progress Note: A&P Assessment and Plan (1) COVID: Code(s): U07.1 - COVID-19 Status: Acute Assessment and Plan: 05/30/23: * Place in COVID19 isolation precautions, cardiac monitoring, and continuous pulse ox * Chest x-ray with mild pulmonary edema, emphysema and small pleural effusion * Oxygen via NC; wean as tolerated. Keep spO2 greater than 91% * Pt is a candidate for Remdesivir and Dexamethasone, continue treatment according to suggested guidelines. Remdesivir 200 mg IV x1, then 100 mg IV x4 days, dexamethasone 6 mg IV daily x 10 days, or until discharge * Albuterol neb q.6 hours * PPI GI prophylaxis 05/31/23: * this is day 4 of 5 of the remdesivir, patient continues dexamethasone 6 mg IV daily * continue albuterol neb treatments q.6 hours * patient currently on 2 L nasal cannula which is her baseline, keep SpO2 greater than 90% * discussed plan with case management for discharge needs 06/01/23: * Today is day 5/5 of the remdesivir, patient continues dexamethasone 6 mg IV daily * Continue with albuterol neb treatments q.6 hours as needed * Patient still on 2 L nasal cannula which is her baseline, keep sat greater than 90% * Case management following patient for discharge needs (2) Pulmonary edema: Code(s): J81.1 - Chronic pulmonary edema Status: Acute Assessment and Plan: 05/30/23: * chest x-ray revealing mild pulmonary edema. * Patient given 2 rounds of IV Lasix with improvement of her breathing. * BNP 1880 05/31/23: * patient received 2 rounds of IV Lasix, lungs clear to auscultation today. * Will continue to monitor for signs of pulmonary edema 06/01/23: * No signs of pulmonary edema today, patient not in any acute distress (3) Chronic obstructive pulmonary disease: Code(s): J44.9 - Chronic obstructive pulmonary disease, unspecified Status: Acute Assessment and Plan: 05/30/23: * Patient does not appear in active exacerbation. * She chronically wears 2 L of oxygen 05/31/23: * no change to current treatment plan * patient back to baseline of 2 L nasal cannula 06/01/23: * No change to current treatment plan (4) Systemic lupus erythematosus: Code(s): M32.9 - Systemic lupus erythematosus, unspecified Status: Acute Assessment and Plan: 05/30/23: * hydroxychloroquine continued 05/31/23: * no change to current treatment plan (5) Hypothyroidism: Code(s): E03.9 - Hypothyroidism, unspecified Status: Acute Assessment and Plan: 05/30/23: * continue Synthroid 05/31/23: * no change to current treatment plan (6) Coronary artery disease: Code(s): I25.10 - Atherosclerotic heart disease of [place] coronary artery without angina pectoris Status: Acute Assessment and Plan: 05/30/23: * continue aspirin 05/31/23: * no change to current treatment plan (7) Hypokalemia: Code(s): E87.6 - Hypokalemia Status: Acute Assessment and Plan: 05/30/23: * Patient potassium today 2.8. * K rider given * Recheck potassium and continue to replace as necessary 05/31/23: * potassium 3.9 * continue to monitor daily lab 06/01/23: * Potassium 4.0 * Continue monitor daily lab Time Spent With Patient Time with patient: Greater than 35 minutes Subjective Date/time seen: 06/01/23 10:38 Interval history: This is a 77 yea
--- NOTE | 2023-06-01 10:38 | PM.IMPN ---
Progress Note: A&P Assessment and Plan (1) COVID: Code(s): U07.1 - COVID-19 Status: Acute Assessment and Plan: 05/30/23: Place in [facility] isolation precautions, cardiac monitoring, and continuous pulse ox Chest x-ray with mild pulmonary edema, emphysema and small pleural effusion Oxygen via NC; wean as tolerated. Keep spO2 greater than 91% Pt is a candidate for Remdesivir and Dexamethasone, continue treatment according to suggested guidelines. Remdesivir 200 mg IV x1, then 100 mg IV x4 days, dexamethasone 6 mg IV daily x 10 days, or until discharge Albuterol neb q.6 hours PPI GI prophylaxis 05/31/23: this is day 4 of 5 of the remdesivir, patient continues dexamethasone 6 mg IV daily continue albuterol neb treatments q.6 hours patient currently on 2 L nasal cannula which is her baseline, keep SpO2 greater than 90% discussed plan with case management for discharge needs 06/01/23: Today is day 5/5 of the remdesivir, patient continues dexamethasone 6 mg IV daily Continue with albuterol neb treatments q.6 hours as needed Patient still on 2 L nasal cannula which is her baseline, keep sat greater than 90% Case management following patient for discharge needs (2) Pulmonary edema: Code(s): J81.1 - Chronic pulmonary edema Status: Acute Assessment and Plan: 05/30/23: chest x-ray revealing mild pulmonary edema. Patient given 2 rounds of IV Lasix with improvement of her breathing. BNP 1880 05/31/23: patient received 2 rounds of IV Lasix, lungs clear to auscultation today. Will continue to monitor for signs of pulmonary edema 06/01/23: No signs of pulmonary edema today, patient not in any acute distress (3) Chronic obstructive pulmonary disease: Code(s): J44.9 - Chronic obstructive pulmonary disease, unspecified Status: Acute Assessment and Plan: 05/30/23: Patient does not appear in active exacerbation. She chronically wears 2 L of oxygen 05/31/23: no change to current treatment plan patient back to baseline of 2 L nasal cannula 06/01/23: No change to current treatment plan (4) Systemic lupus erythematosus: Code(s): M32.9 - Systemic lupus erythematosus, unspecified Status: Acute Assessment and Plan: 05/30/23: hydroxychloroquine continued 05/31/23: no change to current treatment plan (5) Hypothyroidism: Code(s): E03.9 - Hypothyroidism, unspecified Status: Acute Assessment and Plan: 05/30/23: continue Synthroid 05/31/23: no change to current treatment plan (6) Coronary artery disease: Code(s): I25.10 - Atherosclerotic heart disease of [place] coronary artery without angina pectoris Status: Acute Assessment and Plan: 05/30/23: continue aspirin 05/31/23: no change to current treatment plan (7) Hypokalemia: Code(s): E87.6 - Hypokalemia Status: Acute Assessment and Plan: 05/30/23: Patient potassium today 2.8. K rider given Recheck potassium and continue to replace as necessary 05/31/23: potassium 3.9 continue to monitor daily lab 06/01/23: Potassium 4.0 Continue monitor daily lab Time Spent With Patient Time with patient: Greater than 35 minutes Subjective Date/time seen: 06/01/23 10:38 Interval history: This is a 77 year old female who presented to the ER via EMS from [facility] with shortness of breath and pleural effusion. Patient had respiratory panel done and was positive for COVID. CXR revealed mild pulmonary edema, emphysema, and small right pleural effusion. She was given nebulizer treatment and Lasix in the ED. On admission she was started on Remdesivir and Dexamethasone. 05/30/2023: patient states that she is feeling much better today. Care coordination working on getting her different living arrangements although not sure if this will work out or not. P
--- NOTE | 2023-06-01 11:12 | PCNFU ---
Nutrition Follow-Up Complete: Unintended weight loss related to loss of appetite as evidenced by significant weight loss 24%/1 year goal: Adequate PO intake at least 75% meals and supplements Maintain weight Patient is progressing towards goal. We will continue current goal. Pt current nutrition is Heart Healthy. Last recorded weight is 52.7 kg, no new weight to report. Bowel Motility:+BM reported 05/30 Labs Reviewed:Cr 0.5,BUN 20, Na 134 Meds Noted:Lopressor, Remdesivir, Protonix Skin: WNL Additional Notes: Patient remains on a heart healthy diet. Spoke over the phone due to COVID precautions. Patient states she is not drinking diet supplements, discontinued. She is tolerating diet 50-75% reported. She would prefer no milk products-noted in diet office. Agree with diet orders. Monitor intakes, weights, labs, plan of care, supplement tolerance Follow up in 5 days
[2023-06-01] MEDS: REMDESIVIR 100 MG/NS 250 ML 100 MG/250 ML BAG 250 MG IVPB (21:20)
[2023-06-02] VITALS (13 sets, daily range): BP systolic 115–121; BP diastolic 84–88; PULSE 58–73; RESP 16–20; TEMP 36.1–36.7; O2SAT 99–100
[2023-06-02] MEDS: ALBUTEROL SULFATE NEB 2.5 MG/3 ML INH INHALATION ×3 (02:45→13:08)
[2023-06-02 05:44] LABS: Hematocrit 31.9 % (37.0-47.0); Hemoglobin 9.9 g/dL (12.0-15.0); Mean Corpuscular Hemoglobin 27.6 pg (26-34); Mean Corpuscular Volume 88.9 fl (80-100); Mean Platelet Volume 10.5 fl (7.4-10.4); Platelet Count Result 282 k/mm3 (150-375); Red Blood Count 3.59 M/mm3 (4.2-5.4); Red Cell Distribution Width 14.6 % (11.5-14.5); White Blood Count 5.8 K/mm3 (4.5-10.0)
[2023-06-02 05:50] LABS: Anion Gap 3 mmol/L (8-16); Blood Urea Nitrogen 20 mg/dL (7-17); Calcium 7.7 mg/dL (8.4-10.2); Carbon Dioxide 32 mmol/L (22-30); Chloride 99 mmol/L (98-107); Estimated CRCL calculation 55 ml/min; Estimated Glomerular Filt Rate > 60; Glucose 97 mg/dL (65-110); Potassium 4.1 mmol/L (3.4-5.0); Sodium 134 mmol/L (137-145)
[2023-06-02] MEDS: ONDANSETRON INJ 4 MG/2 ML VIAL IV PUSH (06:02)
[2023-06-02] MEDS: LEVOTHYROXINE SODIUM 50 MCG TABLET PO (06:02)
[2023-06-02] MEDS: FLUTICASONE/UMECLIDIN/VILANTER 100-62.5-25 MCG ELLIPTA 1 PUFF INHALATION (07:08)
--- NOTE | 2023-06-02 08:49 | PM.DS ---
DS: Admitting Diagnosis Discharge Date 06/02/23 Admitting Diagnosis Covid pulmonary edema chronic obstructive pulmonary disease chronic respiratory failure with hypoxia, on home O2 systemic lupus erythematous hypothyroidism coronary artery disease DS: Discharge Diagnosis Discharge Diagnosis (1) COVID: Code(s): U07.1 - COVID-19 Status: Acute (2) Pulmonary edema: Code(s): J81.1 - Chronic pulmonary edema Status: Acute (3) Chronic obstructive pulmonary disease: Code(s): J44.9 - Chronic obstructive pulmonary disease, unspecified Status: Acute (4) Systemic lupus erythematosus: Code(s): M32.9 - Systemic lupus erythematosus, unspecified Status: Acute (5) Hypothyroidism: Code(s): E03.9 - Hypothyroidism, unspecified Status: Acute (6) Coronary artery disease: Code(s): I25.10 - Atherosclerotic heart disease of [place] coronary artery without angina pectoris Status: Acute (7) Hypokalemia: Code(s): E87.6 - Hypokalemia Status: Acute DS: Summary Hospital Course Reason for hospitalization: COVID Hospital Course: This is a 77 year old female who presented to the ER on 05/29/2023 via EMS from [facility] increased shortness of breath and pleural effusion chest x-ray revealed mild pulmonary edema, emphysema, and small right pleural effusion. She also had a respiratory panel done which she was positive for covid. Patient was a candidate for remdesivir which she completed all 5 doses and was started on dexamethasone 6 mg IV daily. UA shown trace leukocytes, 2= bacteria, 3-4 hyaline casts, and many urine squamous epithelial cells. UC was obtained and shown mixed genital mariano, no acute infection. Labs today include WBC 5.8 hemoglobin 9.9, hematocrit 31.9, sodium 134, potassium 4.1, BUN 20, creatinine 0.6. On exam today patient alert and oriented x4, vital signs are stable, she remains afebrile, she remains on 2 L nasal cannula which is her baseline, she denies any pain. Patient is stable for discharge today back to [facility]. She will finish additional 5 days of dexamethasone 6 mg p.o. and will need to follow up with her primary care physician in 1 week. Plan of care and discharge discussed with patient and she is agreeable. Status at Discharge Cognitive/behavioral status at discharge: Alert and oriented x3 Functional status at discharge: independent ambulation Overall status at discharge: patient is progressing back to baseline Time Spent with Patient Time attestation: Total time spent providing and/or coordinating discharge services: Time spent: Greater than 30 minutes Exam Narrative: General:? nontoxic-appearing female. Appears agitated today HEENT:??PERRL, EOMI.? Oral mucosa moist. Missing teeth Neck:??Supple. No JVD. Respiratory:?Respirations are nonlabored.? Lung sounds are diminished throughout but are otherwise clear to auscultation, no adventitious lung sounds. Cardiovascular:??Regular rate and rhythm with S1-S2.?No murmur, gallops, rubs. Gastrointestinal:??Abdomen is soft, flat, nontender, and nondistended with normoactive bowel sounds. Skin:??Warm and dry.? No rash or lesions noted Extremities:??No cyanosis, clubbing, or edema. Radial and pedal pulses intact. Neurological:??Alert and oriented x3. No gross focal deficits. Psychiatric:??tearful, yet cooperative DS: Data Data Completed and Pending Labs on day of discharge: Labs from last 24 hours 06/02/23 05:26 WBC 5.8 RBC 3.59 L Hgb 9.9 L Hct 31.9 L MCV 88.9 MCH 27.6 MCHC 31.0 L RDW 14.6 H Plt Count 282 MPV 10.5 H Sodium 134 L Potassium 4.1 Chloride 99 Carbon Dioxide 32 H Anion Gap 3 L BUN 20 H Creatinine 0.60 L Estim Creat Clear Calc 55 Estimated GFR > 60 Glucose 97 Calcium 7.7 L Procedures/Treatments: completed 5 days remdesivir IV Discharge Plan Discharge Attending physician on dis
[2023-06-02] MEDS: PANTOPRAZOLE SODIUM IV 40 MG VIAL IV PUSH (09:17)
[2023-06-02] MEDS: hydrOXYzine HCL 10 MG TABLET PO ×2 (09:18→14:56)
[2023-06-02] MEDS: METOPROLOL TARTRATE 12.5 MG TABLET PO (09:20)
[2023-06-02] MEDS: ASPIRIN 81 MG ENTERIC TABLET PO (09:20)
[2023-06-02] MEDS: DEXAMETHASONE 2 MG TABLET 6 MG PO (09:21)
[2023-06-02] MEDS: HYDROXYCHLOROQUINE SULFATE 200 MG TABLET 400 MG PO (09:27)
--- NOTE | 2023-06-02 11:28 | PCPTNOTE ---
Attempted to see patient for PT, however patient refused therapy due to anticipated discharge. Patient reported she heard she was discharging today and did not want to work with physical therapy.
== END 2023-06-02 16:15 | DRG 178 ==
LOC: ANHED 13:04 → ANH2MED 15:57
PROVIDERS: Internal Medicine; Internal Medicine Critical Care Medicine; Physician Assistant; Admitting Provider Internal Medicine; Emergency Provider General Practice; Visit Provider Nurse Practitioner Acute Care
DX: U07.1 COVID-19 (principal); J96.11 Chronic respiratory failure with hypoxia; J43.9 Emphysema, unspecified; M32.9 Systemic lupus erythematosus, unspecified; E03.9 Hypothyroidism, unspecified; I25.10 Atherosclerotic heart disease of native coronary artery without angina pectoris; E87.6 Hypokalemia; M15.8 Other polyosteoarthritis; M81.0 Age-related osteoporosis without current pathological fracture; I10 Essential (primary) hypertension; F41.9 Anxiety disorder, unspecified; Z79.82 Long term (current) use of aspirin; Z99.81 Dependence on supplemental oxygen; Z95.1 Presence of aortocoronary bypass graft
CPT/HCPCS: 36415; 36600; 71045; 80048; 80053; 81001; 82375; 82728; 82805; 83050; 83615; 83690; 83735; 83880; 84132; 84443; 84484; 85025; 85027; 85610; 85730; 86140; 87086; 87088; 87636; 93005; 94640; 96365; 96375; 96376; 97110; 97161; 97166; 97530; 97535; 99285; A9270; C9113; G0378; J0248; J1940; J2405; J3475; J3480; J7040; J8540

== ENCOUNTER 2024-02-08 06:30 | Emergency (ER) | payer MEDICARE, SELFPAY ==
[2024-02-08] VITALS (13 sets, daily range): BP systolic 146–177; BP diastolic 67–88; PULSE 83–97; RESP 19–24; TEMP 37.1; O2SAT 98–100
--- NOTE | ~2024-02-08 | XR_ITS ---
Clinical Indication: Shortness of breath PA and lateral views of the chest: Comparison: 05/28/2023 Findings: The lungs are clear, without evidence of focal consolidation or pleural effusion. There is COPD pattern. Cardiomediastinal silhouette is stable, status post CABG. Bones and soft tissues are un remarkable. Impression: No definite acute abnormality seen. COPD. Status post CABG. Reviewed, dictated and finalized at location . Impression: No definite acute abnormality seen. COPD. Status post CABG.
--- NOTE | 2024-02-08 06:42 | ECG_ITS ---
Test Date: 2024-02-08 06:57:58 Measurements Intervals [place] Rate: 92 P: 0 MI: 0 QRS: 64 QRSD: 86 T: 91 QT: 377 QTc: 467 Interpretive Statements SINUS RHYTHM WITH PACS NONSPECIFIC ST & T-WAVE ABNORMALITY ABNORMAL RHYTHM ECG No previous ECG available for comparison Electronically Signed On 02-08-2024 13:35:55 CDT by Myles Wilde M.D.
[2024-02-08 07:14] LABS: Basophils Percent Auto 0.7 % (0.2-1.2); Eosinophils Percent Auto 0.7 % (0-4.4); Hemoglobin 9.1 g/dL (12.0-15.0); Immature Granulocyte Absolute 0.02 K/mm3 (0.00-0.031); Immature Granulocyte Percent A 0.4 % (0-0.5); Lymphocytes Absolute Auto 0.82 K/mm3 (0.9-3.2); Mean Corpuscular HGB Conc 31.4 g/dl (32-36); Mean Corpuscular Hemoglobin 26.4 pg (26-34); Mean Corpuscular Volume 84.1 fl (80-100); Monocytes Absolute Auto 0.4 K/mm3 (0.1-0.6); Monocytes Percent Auto 6.6 % (2.6-8.5); Neutrophils Absolute Auto 4.2 K/mm3 (1.3-6.7); Neutrophils Percent Auto 76.6 % (45.5-73.1); Platelet Count Result 256 k/mm3 (150-375); Red Blood Count 3.45 M/mm3 (4.2-5.4); Red Cell Distribution Width 15.5 % (11.5-14.5); White Blood Count 5.5 K/mm3 (4.5-10.0)
[2024-02-08 07:26] LABS: Alanine Aminotransferase 19 U/L (6-35); Albumin Level 3.6 g/dL (3.5-5.1); Alkaline Phosphatase 80 U/L (38-126); Anion Gap 3 mmol/L (4-12); Aspartate Amino Transferase 29 U/L (14-36); Bilirubin,Total 0.5 mg/dL (0.2-1.3); Blood Urea Nitrogen 14 mg/dL (7-17); Calcium 8.7 mg/dL (8.4-10.2); Carbon Dioxide 35 mmol/L (22-30); Chloride 100 mmol/L (98-107); Estimated Glomerular Filt Rate > 60; Glucose 118 mg/dL (65-110); Potassium 3.7 mmol/L (3.4-5.0); Sodium 138 mmol/L (137-145)
--- NOTE | 2024-02-08 07:35 | ED.GENADULT ---
HPI - General Adult General Chief complaint: Shortness of Breath/Dyspnea Stated complaint: dyspnea Time Seen by Provider: 02/08/24 06:58 History of Present Illness HPI narrative: 78-year-old female with history of COPD on oxygen present to the emergency department for evaluation shortness breath. Patient was found sitting in the hallway under residence and was off oxygen. Patient was placed on oxygen and reports she did feel improved. Patient was transported to the emergency department for evaluation. Upon arrival to the ED patient states she still does have shortness breath, but always has shortness of breath and has had shortness of breath the last 2 years. Patient denies any associated chest pain. Related Data Home Medications Medication Instructions Recorded Confirmed albuterol sulfate 90 mcg/actuation 1 inh inhalation Q4-6H PRN 06/30/22 05/28/23 breath activated powder Shortness Of Breath Or Wheezing inhaler,sensor (Proair Digihaler) aspirin 81 mg tablet,delayed 81 mg PO DAILY 06/30/22 05/28/23 release fluticasone fur. 100 mcg-umeclid 1 inh inhalation DAILY 06/30/22 05/28/23 62.5 mcg-vilant 25 mcg inhalat.powder (Trelegy Ellipta) levothyroxine 50 mcg capsule 50 mcg PO DAILY 06/30/22 05/28/23 metoprolol tartrate 25 mg tablet 12.5 mg PO BID 06/30/22 05/28/23 ondansetron 8 mg disintegrating 8 mg PO Q12H PRN Nausea And 06/30/22 05/28/23 tablet Vomiting vilazodone 20 mg tablet (Viibryd) 20 mg PO DAILY 06/30/22 05/28/23 diphenoxylate-atropine 2.5 1 tablet PO TID PRN Diarrhea 05/28/23 05/28/23 mg-0.025 mg tablet (Lomotil) Allergies Allergy/AdvReac Type Severity Reaction Status Date / Time amoxicillin AdvReac Intermediate Unknown Verified 02/08/24 15:58 levofloxacin [From Levaquin] AdvReac Intermediate Unknown Verified 02/08/24 15:58 Sulfa (Sulfonamide AdvReac Intermediate Unknown Verified 02/08/24 15:58 Antibiotics) voriconazole Allergy Severe Hallucinati Uncoded 02/08/24 15:58 ng potassium clavulanate AdvReac Intermediate Unknown Uncoded 02/08/24 15:58 Review of Systems Review of Systems: All systems reviewed & are unremarkable except as noted in HPI and below PMFSH Past Medical History Medical History (Updated 02/08/24 @ 18:39 by Jamei Tolliver MD) Anxiety Arthritis Chronic obstructive pulmonary disease Chronic respiratory failure with hypoxia, on home oxygen therapy Coronary artery disease Generalized osteoarthritis of multiple sites Hypertension Hypothyroidism Irritable bowel syndrome Osteoporosis, post-menopausal Systemic lupus erythematosus Surgical History Surgical History History of cataract extraction History of coronary artery bypass graft x 3 Family History Family History Father Carcinoma of colon Diabetes mellitus Hypertension Depression Mother Hypertension Diabetes mellitus Thyroid disorder Sibling Breast cancer Diabetes mellitus Social History Social History (Updated 05/28/23 @ 23:39 by Maryana Sterling PA-C) Social History: Surrogate medical decision maker: Niece Bela. Code status: Do not resuscitate. Smoking status: Former smoker Tobacco type: cigarettes Alcohol intake: former Substance use: never Substance use type: does not use Lack of Transportation: No Lack of Food: Never True Current Housing: I Have Housing Concerned About Future Housing: No Difficulty Paying Gas/Electric Bills: No Difficulty Paying for Meds: No Currently Unemployed: No Education: High School Diploma/GED Difficulty w/ Childcare or Family Care: No Additional living arrangements comments: for nearly 10 years. She has 1 daughter but they are out of touch. Currently at [facility]. 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 Spiritual care concerns: No Exam Narrative:
[2024-02-08] MEDS: ALBUTEROL SULFATE NEB 2.5 MG/3 ML INH INHALATION (07:49)
--- NOTE | 2024-02-08 09:00 | PC.NURSE ---
Pt was upset and reports confused about why she was here and what has been happening. Pt was re-assured that she was evaluated by a doctor and was ok to return to her home at [facility]. Pt having trouble comprehending that she does not live at her home in [place] and that she lives in the [facility]. She is asking to speak to her sister but there in no contact information in the patient record regarding a sister. Dr. Tolliver did speak with patient while on EMS stretcher and assured her she was ok to go home. EMS agreeable to transport patient. O2 maintained. Pt left with EMS.
== END 2024-02-08 10:10 ==
PROVIDERS: Emergency Medicine; Emergency Provider Emergency Medicine
DX: R06.02 Shortness of breath (principal); J44.9 Chronic obstructive pulmonary disease, unspecified; I25.10 Atherosclerotic heart disease of native coronary artery without angina pectoris; I10 Essential (primary) hypertension; E03.9 Hypothyroidism, unspecified; Z99.81 Dependence on supplemental oxygen; Z87.891 Personal history of nicotine dependence
CPT/HCPCS: 36415; 71046; 80053; 85025; 93005; 94640; 99284

== ENCOUNTER 2024-02-08 15:07 | Inpatient (IN) | payer MEDICARE, SELFPAY ==
[2024-02-08] VITALS (15 sets, daily range): BP systolic 147–191; BP diastolic 70–96; PULSE 88–103; RESP 18–35; TEMP 36.6–37.6; O2SAT 93–100
--- NOTE | ~2024-02-08 | CT_ITS ---
EXAMINATION: CTA chest PE protocol DATE: 02/08/2024 17:43 INDICATION: SOB TECHNIQUE: Computed tomography angiography (CTA) of the chest was performed with 100 mL Omnipaque-350 intravenous contrast timed to evaluate the pulmonary arteries. Coronal maximum intensity projection 3D-reconstructions were created by the technologist. The dose-length product (DLP) was 153.37 mGy-cm. Automated exposure control and iterative reconstruction technique were employed. COMPARISON: None. FINDINGS: Lung parenchyma and airways: Severe sinus change. Granulomatous calcification. Bibasilar scar. Portio ns of the peripheral right lung are excluded from the [id number]. Pleura: Unremarkable. Thoracic inlet, axillae and chest wall: Changes of prior CABG. Thoracic aorta: No significant dilation. No dissection. Mediastinum: Normal. Heart and pericardium: Cardiomegaly. Coronary artery calcifications: Moderate. Upper abdomen: No significant finding. Bones: No acute osseous finding. Pulmonary arteries: Study quality: Motion artifact limits evaluation of the subsegmental pulmonary ar teries and segmental branches in the lingula, right middle lobe, and bilateral lower lobes. No pulmon efra emboli detected in the adequately visualized pulmonary arteries. IMPRESSION: Motion limited evaluation of the subsegmental arteries, segmental lingular, right middle lobe, and bi lateral lobe pulmonary arteries. No CT evidence of acute central or upper lobe pulmonary embolus. No acute process detected in the chest. Severe emphysematous change. Reviewed, dictated and finalized at location K. IMPRESSION: Motion limited evaluation of the subsegmental arteries, segmental lingular, rig ht middle lobe, and bilateral lobe pulmonary arteries. No CT evidence of acute central or upper lobe pulmonary embolus. No acute process detected in the chest. Severe emphysematous change.
--- NOTE | ~2024-02-08 | US_ITS ---
EXAMINATION: US venous doppler UE RT DATE: 02/09/2024 13:52 INDICATION: Right upper limb swelling. TECHNIQUE: Grayscale ultrasound images without and with compression and Doppler ultrasound images of the right upper extremity veins were obtained. COMPARISON: None. FINDINGS: The visualized portions of the right internal jugular vein, subclavian vein, axillary vein, brachial veins, basilic vein, cephalic vein, radial vein, and ulnar vein are patent. IMPRESSION: 1. No deep venous thrombosis. Reviewed, dictated and finalized at location A.
--- NOTE | ~2024-02-08 | XR_ITS ---
EXAMINATION: XR chest 2V DATE: 02/08/2024 16:12 INDICATION: Shortness of breath. TECHNIQUE: Frontal and lateral views of the chest were obtained. COMPARISON: Chest 2 views 02/08/2024 FINDINGS: There is mild elevation of left hemidiaphragm. There is mild atelectasis versus scarring in the lower lung zones. There is no pneumonia, pleural effusion, or pneumothorax. The heart size is no rmal. Median sternotomy wires and mediastinal surgical clips are seen, likely from prior coronary art harmony bypass grafting. IMPRESSION: 1. Mild atelectasis versus scarring in the lower lung zones. Reviewed, dictated and finalized at location A.
--- NOTE | ~2024-02-08 | CT_ITS ---
EXAMINATION: CT brain wo con DATE: 02/09/2024 13:18 INDICATION: Transient alteration of awareness. TECHNIQUE: Computed tomography (CT) of the head was performed without intravenous contrast. The mA wa s adjusted according to patient size. Iterative reconstruction technique was employed. The dose-lengt h product was 1362.00 mGy-cm. COMPARISON: None FINDINGS: There is mild motion artifact. There are scattered areas of low attenuation in the cerebral white matter. There is no intracranial hemorrhage, acute infarction, or abnormal intracranial mass l esion. The ventricles are normal in size. There is mild mucosal thickening in the ethmoid sinuses. Th ere are likely changes of ocular lens replacement surgeries. The mastoid air cells are normal. IMPRESSION: 1. Moderate nonspecific cerebral white matter disease, which likely represents chronic small vessel i schemic disease. Reviewed, dictated and finalized at location A. IMPRESSION: 1. Moderate nonspecific cerebral white matter disease, which likely represents chronic small vessel ischemic disease.
--- NOTE | 2024-02-08 15:26 | ECG_ITS ---
Test Date: 2024-02-08 15:53:30 Measurements Intervals [place] Rate: 95 P: 0 ID: 0 QRS: 70 QRSD: 84 T: 53 QT: 388 QTc: 488 Interpretive Statements POOR ECG QUALITY BECAUSE OF BASELINE ARTIFACT SUSPECTED SINUS RHYTHM WITH PACS NONSPECIFIC ST & T-WAVE ABNORMALITY ABNORMAL RHYTHM ECG Compared to ECG 02/08/2024 06:57:58 NO OBVIOUS CHANGE, DIFFICULT COMPARISON BECAUSE OF POOR QUALITY ELECTROCARDIOGRAM Electronically Signed On 02-09-2024 07:20:46 CDT by Hector Oneil M.D.
[2024-02-08 16:28] LABS: Basophils Percent Auto 0.7 % (0.2-1.2); Eosinophils Absolute Auto 0.2 K/mm3 (0-0.3); Eosinophils Percent Auto 2.8 % (0-4.4); Hemoglobin 9.1 g/dL (12.0-15.0); Immature Granulocyte Absolute 0.02 K/mm3 (0.00-0.031); Immature Granulocyte Percent A 0.3 % (0-0.5); Lymphocytes Absolute Auto 0.99 K/mm3 (0.9-3.2); Lymphocytes Percent Auto 16.4 % (18.3-44.2); Mean Corpuscular HGB Conc 31.4 g/dl (32-36); Mean Corpuscular Hemoglobin 26.1 pg (26-34); Mean Corpuscular Volume 83.3 fl (80-100); Monocytes Absolute Auto 0.4 K/mm3 (0.1-0.6); Neutrophils Absolute Auto 4.4 K/mm3 (1.3-6.7); Neutrophils Percent Auto 72.8 % (45.5-73.1); Platelet Count Result 278 k/mm3 (150-375); Red Blood Count 3.48 M/mm3 (4.2-5.4); Red Cell Distribution Width 15.7 % (11.5-14.5)
[2024-02-08 16:39] LABS: Alanine Aminotransferase 20 U/L (6-35); Alkaline Phosphatase 95 U/L (38-126); Anion Gap 6 mmol/L (4-12); Aspartate Amino Transferase 29 U/L (14-36); Bilirubin,Total 0.6 mg/dL (0.2-1.3); Blood Urea Nitrogen 17 mg/dL (7-17); Calcium 8.7 mg/dL (8.4-10.2); Carbon Dioxide 33 mmol/L (22-30); Chloride 99 mmol/L (98-107); Estimated Glomerular Filt Rate > 60; Glucose 110 mg/dL (65-110); Potassium 3.8 mmol/L (3.4-5.0); Sodium 138 mmol/L (137-145)
[2024-02-08 17:05] LABS: Influenza A QL RT-PCR Negative (Negative); Influenza B QL RT-PCR Negative (Negative); RSV RNA, RT-PCR Negative (Negative); SARS-CoV-2 RNA PCR Negative (Negative)
--- NOTE | 2024-02-08 18:36 | ED.GENADULT ---
HPI - General Adult General Chief complaint: Shortness of Breath/Dyspnea Stated complaint: SOB, CONFUSION Time Seen by Provider: 02/08/24 15:42 History of Present Illness HPI narrative: 78-year-old female with history of COPD return to the emergency department for worsening shortness of breath. Patient was evaluated emergency department earlier today but had worsening shortness of breath after returning back to her care facility. Patient does have a history of emphysema and COPD. Patient denies any associated chest pain but does have increased workup breathing. Related Data Home Medications Medication Instructions Recorded Confirmed albuterol sulfate 90 mcg/actuation 1 inh inhalation Q4-6H PRN 06/30/22 05/28/23 breath activated powder Shortness Of Breath Or Wheezing inhaler,sensor (Proair Digihaler) aspirin 81 mg tablet,delayed 81 mg PO DAILY 06/30/22 05/28/23 release fluticasone fur. 100 mcg-umeclid 1 inh inhalation DAILY 06/30/22 05/28/23 62.5 mcg-vilant 25 mcg inhalat.powder (Trelegy Ellipta) levothyroxine 50 mcg capsule 50 mcg PO DAILY 06/30/22 05/28/23 metoprolol tartrate 25 mg tablet 12.5 mg PO BID 06/30/22 05/28/23 ondansetron 8 mg disintegrating 8 mg PO Q12H PRN Nausea And 06/30/22 05/28/23 tablet Vomiting vilazodone 20 mg tablet (Viibryd) 20 mg PO DAILY 06/30/22 05/28/23 diphenoxylate-atropine 2.5 1 tablet PO TID PRN Diarrhea 05/28/23 05/28/23 mg-0.025 mg tablet (Lomotil) Allergies Allergy/AdvReac Type Severity Reaction Status Date / Time amoxicillin AdvReac Intermediate Unknown Verified 02/08/24 15:58 levofloxacin [From Levaquin] AdvReac Intermediate Unknown Verified 02/08/24 15:58 Sulfa (Sulfonamide AdvReac Intermediate Unknown Verified 02/08/24 15:58 Antibiotics) voriconazole Allergy Severe Hallucinati Uncoded 02/08/24 15:58 ng potassium clavulanate AdvReac Intermediate Unknown Uncoded 02/08/24 15:58 Review of Systems Review of Systems: All systems reviewed & are unremarkable except as noted in HPI and below PMFSH Past Medical History Medical History (Updated 02/08/24 @ 18:39 by Jamie Tolliver MD) Anxiety Arthritis Chronic obstructive pulmonary disease Chronic respiratory failure with hypoxia, on home oxygen therapy Coronary artery disease Generalized osteoarthritis of multiple sites Hypertension Hypothyroidism Irritable bowel syndrome Osteoporosis, post-menopausal Systemic lupus erythematosus Surgical History Surgical History History of cataract extraction History of coronary artery bypass graft x 3 Family History Family History Father Carcinoma of colon Diabetes mellitus Hypertension Depression Mother Hypertension Diabetes mellitus Thyroid disorder Sibling Breast cancer Diabetes mellitus Social History Social History (Updated 05/28/23 @ 23:39 by Maryana Sterling PA-C) Social History: Surrogate medical decision maker: Niyulissa Cramer. Code status: Do not resuscitate. Smoking status: Former smoker Tobacco type: cigarettes Alcohol intake: former Substance use: never Substance use type: does not use Lack of Transportation: No Lack of Food: Never True Current Housing: I Have Housing Concerned About Future Housing: No Difficulty Paying Gas/Electric Bills: No Difficulty Paying for Meds: No Currently Unemployed: No Education: High School Diploma/GED Difficulty w/ Childcare or Family Care: No Additional living arrangements comments: for nearly 10 years. She has 1 daughter but they are out of touch. Currently at [facility]. 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 Spiritual care concerns: No Exam Narrative: APPEARANCE: Increased work of breathing HEAD: normocephalic, atraumatic. EYES: PERRLA/EOMI, conjunctivae clear. NOSE: Normal no drainage EAR
--- NOTE | 2024-02-08 19:36 | PM.IMHP ---
H&P: HPI History of Present Illness Date/Time: 02/08/24 19:36 Chief Complaint: sob Narrative: This is a 78-year-old with past medical history significant for COPD/emphysema, chronic respiratory failure on supplemental oxygen by nasal cannula, coronary artery disease, generalized osteoarthritis, hypertension, irritable bowel syndrome, osteoporosis. Patient is a long-term resident, Was brought today for evaluation due to shortness of breath and discharged home from the emergency room however returned due to worsening shortness of breath. Patient can not really give any meaningful history. In emergency room patient received several breathing treatments and has been admitted to IMU for further evaluation management and treatment. Clinical Indication: Shortness of breath PA and lateral views of the chest: Comparison: 05/28/2023 Findings: The lungs are clear, without evidence of focal consolidation or pleural effusion. There is COPD pattern. Cardiomediastinal silhouette is stable, status post CABG. Bones and soft tissues are unremarkable. Impression: No definite acute abnormality seen. COPD. Status post CABG. EXAMINATION: CTA chest PE protocol DATE: 02/08/2024 17:43 INDICATION: SOB TECHNIQUE: Computed tomography angiography (CTA) of the chest was performed with 100 mL Omnipaque-350 intravenous contrast timed to evaluate the pulmonary arteries. Coronal maximum intensity projection 3D-reconstructions were created by the technologist. The dose-length product (DLP) was 153.37 mGy-cm. Automated exposure control and iterative reconstruction technique were employed. COMPARISON: None. FINDINGS: Lung parenchyma and airways: Severe sinus change. Granulomatous calcification. Bibasilar scar. Portions of the peripheral right lung are excluded from the [id number]. Pleura: Unremarkable. Thoracic inlet, axillae and chest wall: Changes of prior CABG. Thoracic aorta: No significant dilation. No dissection. Mediastinum: Normal. Heart and pericardium: Cardiomegaly. Coronary artery calcifications: Moderate. Upper abdomen: No significant finding. Bones: No acute osseous finding. Pulmonary arteries: Study quality: Motion artifact limits evaluation of the subsegmental pulmonary arteries and segmental branches in the lingula, right middle lobe, and bilateral lower lobes. No pulmonary emboli detected in the adequately visualized pulmonary arteries. IMPRESSION: Motion limited evaluation of the subsegmental arteries, segmental lingular, right middle lobe, and bilateral lobe pulmonary arteries. No CT evidence of acute central or upper lobe pulmonary embolus. No acute process detected in the chest. Severe emphysematous change. Review of Systems Review of Systems: ROS unobtainable: Yes unobtainable due to medical condition (sob) [facility] Past Medical History Medical History (Updated 02/09/24 @ 00:44 by Tomy Arana MD) Anxiety Arthritis Chronic obstructive pulmonary disease Chronic respiratory failure with hypoxia, on home oxygen therapy Coronary artery disease Generalized osteoarthritis of multiple sites Hypertension Hypothyroidism Irritable bowel syndrome Osteoporosis, post-menopausal Systemic lupus erythematosus Surgical History Surgical History History of cataract extraction History of coronary artery bypass graft x 3 Family History Family History Father Carcinoma of colon Diabetes mellitus Hypertension Depression Mother Hypertension Diabetes mellitus Thyroid disorder Sibling Breast cancer Diabetes mellitus Social History Social History (Updated 05/28/23 @ 23:39 by Maryana Sterling PA-C) Social History: Surrogate medical decision maker: Niece Bela. Code status: Do not resuscitate. Smoking status: Former smoker Tobacco type: cigarettes
[2024-02-08] MEDS: methylPREDNISolone SOD SUCC 125 MG VIAL IV PUSH (19:39)
--- NOTE | 2024-02-08 19:50 | ADMGEN ---
This patient, Magali Vega, was admitted to IMU Room 206-02. Patient/family oriented to hospital policies and general routines including ID bracelet, bed and alarms, visiting hours, pain management, procedures, bathroom and other care routines, personal items, smoking policy, room service/diet, and visiting hours. Information on how to activate the Rapid Response Team has been discussed. Patient/Family are encouraged to report perceived risks to care and to ask questions if they do not understand what they are told or what they should do.
[2024-02-08] MEDS: ALBUTEROL SULFATE NEB 2.5 MG/3 ML INH INHALATION (21:03)
[2024-02-08] MEDS: methylPREDNISolone SOD SUCC 125 MG VIAL 60 MG IV PUSH (23:40)
[2024-02-08] MEDS: ALPRAZolam (*CRX) 0.25 MG TABLET PO (23:40)
[2024-02-08] MEDS: busPIRone HCL 10 MG TABLET PO (23:40)
[2024-02-09] VITALS (20 sets, daily range): BP systolic 136–175; BP diastolic 56–89; PULSE 60–108; RESP 16–22; TEMP 35.8–37.7; O2SAT 94–100; BMI 14.8
[2024-02-09] MEDS: ALBUTEROL SULFATE NEB 2.5 MG/3 ML INH INHALATION ×2 (02:10→07:25)
[2024-02-09] MEDS: methylPREDNISolone SOD SUCC 125 MG VIAL 60 MG IV PUSH (05:27)
[2024-02-09] MEDS: LEVOTHYROXINE SODIUM 50 MCG TABLET PO (05:31)
[2024-02-09] MEDS: ASPIRIN 81 MG ENTERIC TABLET PO (08:50)
[2024-02-09] MEDS: HYDROXYCHLOROQUINE SULFATE 200 MG TABLET PO (08:50)
[2024-02-09] MEDS: ALPRAZolam (*CRX) 0.25 MG TABLET PO ×2 (08:50→17:21)
[2024-02-09] MEDS: LOSARTAN POTASSIUM 50 MG TABLET PO (08:50)
[2024-02-09] MEDS: busPIRone HCL 10 MG TABLET PO ×2 (08:50→17:43)
--- NOTE | 2024-02-09 11:51 | PM.IMPN ---
Progress Note: A&P Assessment and Plan (1) COPD exacerbation: Code(s): J44.1 - Chronic obstructive pulmonary disease with (acute) exacerbation Status: Acute (2) COPD (chronic obstructive pulmonary disease): Code(s): J44.9 - Chronic obstructive pulmonary disease, unspecified Status: Acute (3) Altered mental status: Code(s): R41.82 - Altered mental status, unspecified Status: Acute (4) Swelling of right upper extremity: Code(s): M79.89 - Other specified soft tissue disorders Status: Acute Plan This is a pleasant but anxious 78-year-old female with a history of COPD with chronic respiratory failure on home O2, cachexia, permanent resident of [facility], CAD status post CABG x3, osteoarthritis, hypertension, hypothyroidism, irritable bowel syndrome, SLE. Patient is poor historian as she is slightly altered, history is taken from the patient herself along with chart review. Reportedly the patient is brought in from her usual place of residence and she had been previously in good health, main complaint is shortness of breath although upon evaluation the patient denies shortness of breath or cough. She has a baseline dry cough. Denies chest pain as well. Believes that her symptoms are more related to anxiety. Subsequently her workup in the [facility] was widely negative. A chest x-ray demonstrating mild atelectasis, chest CT negative for PE and demonstrating severe emphysema. She was admitted on 02/08/2024 on 2 L nasal cannula. # acute COPD exacerbation # chronic hypoxic respiratory failure -status: Mild, improved. -has a history COPD, patient reports chronic dry cough. Unclear what she is on in the [facility] but she is only on 2 L here. -started on Solu-Medrol in the ED and also given DuoNebs. Continue DuoNebs but change Solu-Medrol to prednisone 40 mg p.o. q.day. no indication for azithromycin therapy. -patient believes anxiety is the causal component. Agree with this. Treat Anxiety as below. -check ABG. -cachexia, likely pulmonary. Dietary supplements ordered. # anxiety and depression -status: Acute -no suicidal homicidal ideation. Having anxiety which can be causing her to appear short of breath. Continue COMMERCIAL REAL ESTATE BROKER vilazodone, continue COMMERCIAL REAL ESTATE BROKER Xanax 0.25 mg p.o. b.i.d. discontinue hydroxyzine, can cause alterations in the elderly. # altered mental status -status: History is unreliable. Unclear if this is been going on for some time and there is a progressive unspecified neurocognitive decline. Will complete a workup -CT head without contrast, ABG, drugs of abuse urine screen, RPR, ammonia level, salicylates and acetaminophen, vitamin B12 folate, vitamin-D level, TSH -check UA # anemia -status: Stable, chronic -chart review reveals a hemoglobin of 10 in 2022 and now in the low 90s. Patient denies any overt signs of bleeding. Will check iron panel and ferritin. # right upper extremity swelling distal to the elbow -status: Acute? -unclear when this started. Check venous Doppler Chronic Conditions -CAD status post CABG: -hypertension: At goal, continue COMMERCIAL [employer] ESTATE BROKER losartan -SLE: Continue COMMERCIAL [employer] ESTATE BROKER hydroxychloroquine -IBS: ctm -hypothyroidism: Continue COMMERCIAL [employer]STATE BROKER levothyroxine F/E/N: saline lock IV, replace lytes as needed, cardiac diet with dietary supplements GI prophylaxis: Not indicated DVT prophylaxis: Lovenox 40 mg subQ q.day Lines: Peripheral IV Code Status: Patient has a form from [facility] reporting comfort measures only. She wishes to be DNR and is okay with medical workup and treatment for now. Dispo: Patient is stable on telemetry floor. Transfer to medical floor. Workup ongoing for altered mental status and treating COPD. Anticipate discharge back to [facility] Medication reconciliation obtained via the following: Nurse completed with the occasion reconciliation sent from [facility] Social Drivers
[2024-02-09] MEDS: FLUTICASONE/UMECLIDIN/VILANTER 100-62.5-25 MCG ELLIPTA 1 PUFF INHALATION (12:24)
[2024-02-09 12:27] LABS: Alveolar/Arterial O2 Gradient 54.7 mmHg; Base Excess ABG 5.3 mEq/l (+/-2.0); Carboxyhemoglobin 0.2 % THb (0-2.0); Fractional Inspired Oxygen 28 %; HCO3 ABG 28.7 mEq/l (22.0-26.0); Methemoglobin ABG 0.3 %THb (0-1.5); Oxygen Content ABG 13.6 %vol (16.0-22.0); Oxygen Saturation ABG 98.1 % (95.0-100.0); Oxyhemoglobin 97.4 % THb (90.0-100.0); PCO2 ABG 37.4 mmHg (35.0-45.0); PO2 ABG 100.8 mmHg (80.0-100.0); Reduced Hemoglobin 2.1 %THb (0-5.0); Total Hemoglobin 9.8 g/dL (12.0-18.0)
[2024-02-09 12:31] LABS: pH ABG 7.503 (7.350-7.450)
[2024-02-09 12:32] LABS: Device NASAL CANNULA; Modified Allen's Test Pass; Site Drawn LEFT RADIAL
[2024-02-09] MEDS: ENOXAPARIN 40 MG/0.4 ML SYRINGE SUB-Q (12:37)
[2024-02-09 12:43] LABS: Ammonia < 9 umol/L (9-30)
--- NOTE | 2024-02-09 13:05 | PC.NURSE ---
This patient, Magali Vega, was transferred to [facility] on 02/09/24 at 1303. Personal belongings sent with patient. Report given to Gisele BAILEY. Appropriate documentation sent with patient. Left message with Family contact of room change.
[2024-02-09 13:12] LABS: Acetaminophen < 10 ug/mL (10-30); Salicylate < 1.0 mg/dL (2-20)
[2024-02-09 13:15] LABS: Iron 24 ug/dL (37-170)
[2024-02-09 13:26] LABS: Thyroid Stimulating Hormone Reflex 0.429 uIU/mL (0.465-4.68)
[2024-02-09 13:48] LABS: Percent Iron Saturation 5 % (20-50)
[2024-02-09 13:54] LABS: Folic Acid 8.9 ng/mL (2.76->20)
[2024-02-09 14:18] LABS: Rapid Plasma Reagin Non-Reactive (NonReactive)
--- NOTE | 2024-02-09 16:04 | PC.NURSE ---
Refrigeration Plant Operator re-evaluated [place] score with patient after patient verbalized wanting to end her life stated I will make a knife out of something I will kill myself, you just watch . Hospitalist and House Sup made aware
--- NOTE | 2024-02-09 16:44 | PC.NURSE ---
Dr. Snow contacted per this RN for clarification of pt's suicidal statements. Per Dr. Snow, the patient is not A/O x3 at this time, has hx of encephalopathy and is an extension of her agitation. Clarified that provider is wishing to disregard the high risk Traverse scale as the patient is not A/O x3 to answer the questions as intended. Clarified that provider does not wish the patient to be on suicide precautions. Wishes the patient to stay on MS floor, but is requiring a one to one sitter for observation. insulator apprentice made aware and arrangements made for 1:1 sitter.
[2024-02-09] MEDS: QUEtiapine FUMARATE 25 MG TABLET PO (17:22)
[2024-02-09 17:29] LABS: Free T4 Free Thyroxine Reflex 1.37 ng/dL (0.78-2.19)
--- NOTE | 2024-02-09 17:49 | PC.NURSE ---
Patient has sitter in room at this time. New orders for telemetry monitoring has been order and no telemetry available. Patient will be transferred to med surg room 333
--- NOTE | 2024-02-09 18:38 | PC.NURSE ---
This patient, Magali Vega, was transferred on 02/09/2024 from 344 to room 333 at 1838. Personal belongings sent with patient. Report given to Brianne BAILEY prior to transport. Appropriate documentation sent with patient. Called Family contact of room change - no answer
[2024-02-09 19:00] LABS: Vitamin D 25 Hydroxy < 12.8 ng/mL
[2024-02-09 19:51] LABS: Total Triiodothyronine (T3) 0.84 NG/ML (0.97-1.69)
[2024-02-09] MEDS: IPRATROPIUM 0.5 MG/ALBUTEROL SULFATE 2.5 MG AMPUL.NEB 3 ML INHALATION (21:32)
[2024-02-10] VITALS (13 sets, daily range): BP systolic 133–158; BP diastolic 47–62; PULSE 70–111; RESP 16–18; TEMP 36.2–37.2; O2SAT 94–100
[2024-02-10 02:26] LABS: Amphetamine Screen Urine Negative (Negative); Barbiturate Screen Urine Negative (Negative); Benzodiazepines Screen Urine Positive (Negative); Cannabinoid Screen Urine Negative (Negative); Cocaine Screen Urine Negative (Negative); Methadone Screen Urine Negative (Negative); Opiate Screen Urine Negative (Negative); Phencyclidine Screen Urine Negative (Negative)
[2024-02-10 02:37] LABS: Appearance Urine Cloudy (Clear); Bacteria Urine Rare /hpf; Bilirubin Urine Negative (Negative); Blood Urine Negative (Negative); Color Urine Yellow (Yellow); Glucose Urine UA Negative (Negative); Ketones Urine Negative (Negative); Leukocyte Esterase Ur Trace LEU/UL (Negative); Need Manual Microscopic Reviewed; Nitrate Urine Negative (Negative); Protein Urine 1+ mg/dL (Negative); Squamous Epithelial Cell Urine Occasional /hpf (Few); WBC Urine 0-5 /hpf (0-3); pH Urine 6.5 (5.0-9.0)
[2024-02-10 02:38] LABS: Specific Grav Ur 1.036 (1.001-1.035)
[2024-02-10 02:39] LABS: Amorphous Sediment Urine Moderate
[2024-02-10] MEDS: IPRATROPIUM 0.5 MG/ALBUTEROL SULFATE 2.5 MG AMPUL.NEB 3 ML INHALATION ×2 (02:39→08:07)
[2024-02-10 02:50] LABS: Add Urine Microscopic? YES
--- NOTE | 2024-02-10 05:00 | ECG_ITS ---
Test Date: 2024-02-10 08:45:53 Measurements Intervals [place] Rate: 99 P: 0 MD: 0 QRS: 68 QRSD: 86 T: 104 QT: 315 QTc: 405 Interpretive Statements ATRIAL FIBRILLATION NONSPECIFIC ST & T-WAVE ABNORMALITY ABNORMAL RHYTHM ECG Compared to ECG 02/08/2024 15:53:30 NO CHANGE SINCE PREVIOUS ECG PERFORMED Electronically Signed On 02-10-2024 11:29:35 CDT by Ronny Quintana M.D.
[2024-02-10] MEDS: LEVOTHYROXINE SODIUM 50 MCG TABLET PO (06:12)
[2024-02-10 06:44] LABS: Basophils Absolute Auto 0.1 K/mm3 (0.0-0.1); Basophils Percent Auto 0.8 % (0.2-1.2); Eosinophils Percent Auto 0.3 % (0-4.4); Hematocrit 28.3 % (37.0-47.0); Hemoglobin 8.8 g/dL (12.0-15.0); Immature Granulocyte Absolute 0.05 K/mm3 (0.00-0.031); Immature Granulocyte Percent A 0.6 % (0-0.5); Lymphocytes Absolute Auto 1.02 K/mm3 (0.9-3.2); Lymphocytes Percent Auto 12.9 % (18.3-44.2); Mean Corpuscular HGB Conc 31.1 g/dl (32-36); Mean Corpuscular Hemoglobin 25.9 pg (26-34); Mean Corpuscular Volume 83.2 fl (80-100); Mean Platelet Volume 9.7 fl (7.4-10.4); Monocytes Absolute Auto 0.6 K/mm3 (0.1-0.6); Monocytes Percent Auto 6.9 % (2.6-8.5); Neutrophils Absolute Auto 6.2 K/mm3 (1.3-6.7); Neutrophils Percent Auto 78.5 % (45.5-73.1); Platelet Count Result 257 k/mm3 (150-375); Red Cell Distribution Width 15.8 % (11.5-14.5); White Blood Count 7.9 K/mm3 (4.5-10.0)
[2024-02-10 06:51] LABS: Alanine Aminotransferase 19 U/L (6-35); Albumin Level 3.5 g/dL (3.5-5.1); Alkaline Phosphatase 70 U/L (38-126); Anion Gap 2 mmol/L (4-12); Aspartate Amino Transferase 29 U/L (14-36); Bilirubin,Total 0.5 mg/dL (0.2-1.3); Blood Urea Nitrogen 29 mg/dL (7-17); CRP < 0.5 mg/dL (<1.0); Calcium 8.3 mg/dL (8.4-10.2); Carbon Dioxide 35 mmol/L (22-30); Chloride 99 mmol/L (98-107); Estimated CRCL calculation 37 ml/min; Estimated Glomerular Filt Rate > 60; Glucose 96 mg/dL (65-110); Magnesium 1.8 mg/dL (1.6-2.3); Potassium 3.5 mmol/L (3.4-5.0); Sodium 136 mmol/L (137-145)
[2024-02-10 07:08] LABS: Procalcitonin 0.1 ng/mL
[2024-02-10] MEDS: ASPIRIN 81 MG ENTERIC TABLET PO (10:06)
[2024-02-10] MEDS: ENOXAPARIN 40 MG/0.4 ML SYRINGE SUB-Q (10:06)
[2024-02-10] MEDS: ALPRAZolam (*CRX) 0.25 MG TABLET PO ×2 (10:06→18:02)
[2024-02-10] MEDS: predniSONE 20 MG TABLET 40 MG PO (10:07)
[2024-02-10] MEDS: LOSARTAN POTASSIUM 50 MG TABLET PO (10:07)
[2024-02-10] MEDS: HYDROXYCHLOROQUINE SULFATE 200 MG TABLET PO (10:07)
[2024-02-10] MEDS: busPIRone HCL 10 MG TABLET PO ×2 (10:08→18:02)
[2024-02-10] MEDS: FLUTICASONE/UMECLIDIN/VILANTER 100-62.5-25 MCG ELLIPTA 1 PUFF INHALATION (10:18)
--- NOTE | 2024-02-10 10:37 | PM.IMPN ---
Progress Note: A&P Assessment and Plan (1) COPD exacerbation: Code(s): J44.1 - Chronic obstructive pulmonary disease with (acute) exacerbation Status: Acute (2) COPD (chronic obstructive pulmonary disease): Code(s): J44.9 - Chronic obstructive pulmonary disease, unspecified Status: Acute (3) Altered mental status: Code(s): R41.82 - Altered mental status, unspecified Status: Acute (4) Swelling of right upper extremity: Code(s): M79.89 - Other specified soft tissue disorders Status: Acute (5) Dementia, senile with delusions: Code(s): F03.92 - Unspecified dementia, unspecified severity, with psychotic disturbance Status: Acute (6) Vitamin D deficiency: Code(s): E55.9 - Vitamin D deficiency, unspecified Status: Acute Plan This is a pleasant but anxious 78-year-old female with a history of COPD with chronic respiratory failure on home O2, cachexia, permanent resident of [facility], CAD status post CABG x3, osteoarthritis, hypertension, hypothyroidism, irritable bowel syndrome, SLE. Patient is poor historian as she is slightly altered, history is taken from the patient herself along with chart review. Reportedly the patient is brought in from her usual place of residence and she had been previously in good health, main complaint is shortness of breath although upon evaluation the patient denies shortness of breath or cough. She has a baseline dry cough. Denies chest pain as well. Believes that her symptoms are more related to anxiety. Subsequently her workup in the [facility] was widely negative. A chest x-ray demonstrating mild atelectasis, chest CT negative for PE and demonstrating severe emphysema. She was admitted on 02/08/2024 on 2 L nasal cannula. # acute COPD exacerbation # chronic hypoxic respiratory failure -status: Mild, resolved. -has a history COPD, patient reports chronic dry cough. Unclear what she is on in the [facility] but she is only on 2 L here. -started on Solu-Medrol in the ED and also given DuoNebs. on 02/09 she is breathing at baseline, change duonebs to prn. prednisone dc'ed. -patient believes anxiety is the causal component. Agree with this. Treat Anxiety as below. ctm. -ABG 02/08 7.5/37.4/100.8/28.7 -cachexia, likely pulmonary. Dietary supplements ordered. # anxiety and depression # senile dementia with paranoid delusions -status: Acute on chronic, improved -Having anxiety which can be causing her to appear short of breath. -spoke with sister Jess. sister wants the POA (niece Marialuisa) to continue making decisions as Jess is too old and taking care of other ill family members. Spoke with Marialuisa who reveals the pt has had paranoia for a long time now. this is an undertreated likely senile dementia with delusions. discussed the risks vs benefit profile of medications to which Marialuisa understood and agreed. Marialuisa is sending some records via fax. -on 02/08 the patient became very agitated and confused and spoke about dieing by making a knife. on 02/09 she has no real intent, does not even remember she said the aforementioned. cont 1 on 1 sitter for 1 more day and will re-assess again -POA reports bad response to haldol, use prn antipsychotics extremely cautiously. physical restraints + 1 on 1 sitter are to be used first as appropriate. -cont vilazodone at 10mg instead of 30mg (plan to wean 2/2 seroquel being started, and interaction with both seroquel and buspirone) -cont STRATEGIC MANAGER xanax 0.25mg po bid, STRATEGIC MANAGER buspirone 10mg po bid -seroquel 25mg po started on 02/08 in the PM, good response. 02/09 increase to seroquel 25mg po bid. she is more calm, but continues to have 24/7 agitation. -CT head 02/08 with moderated white matter disease, drugs of abuse urine screen only positive for benzo. UA contaminated, no symptoms. ABG, RPR, ammonia level, salicylates and acetaminophen, vitamin B12 folate, TSH all ok. quad viral screen negative. MRI
[2024-02-10] MEDS: QUEtiapine FUMARATE 25 MG TABLET PO ×2 (13:30→18:02)
[2024-02-11] VITALS (10 sets, daily range): BP systolic 120–137; BP diastolic 69–90; PULSE 54–97; RESP 18–20; TEMP 36.3–36.8; O2SAT 93–100
--- NOTE | 2024-02-11 05:00 | ECG_ITS ---
Test Date: 2024-02-11 08:07:50 Measurements Intervals [place] Rate: 77 P: 0 MI: 0 QRS: 67 QRSD: 85 T: 53 QT: 399 QTc: 452 Interpretive Statements ATRIAL FIBRILLATION MINIMAL VOLTAGE CRITERIA FOR LVH, CONSIDER NORMAL VARIANT [MEETS CRITERIA IN ONE OF: R(aVL), S(V1), R(V5), R(V5/V6)+S(V1)] NONSPECIFIC ST & T-WAVE ABNORMALITY ABNORMAL RHYTHM ECG Compared to ECG 02/10/2024 08:45:53 No significant changes Electronically Signed On 02-11-2024 16:14:24 CDT by Ronny Quintana M.D.
[2024-02-11] MEDS: LEVOTHYROXINE SODIUM 50 MCG TABLET PO (06:11)
[2024-02-11] MEDS: FLUTICASONE/UMECLIDIN/VILANTER 100-62.5-25 MCG ELLIPTA 1 PUFF INHALATION (08:05)
[2024-02-11] MEDS: ALPRAZolam (*CRX) 0.25 MG TABLET PO ×2 (09:22→17:47)
[2024-02-11] MEDS: LOSARTAN POTASSIUM 50 MG TABLET PO (09:22)
[2024-02-11] MEDS: busPIRone HCL 10 MG TABLET PO ×2 (09:22→17:47)
[2024-02-11] MEDS: ENOXAPARIN 40 MG/0.4 ML SYRINGE SUB-Q (09:22)
[2024-02-11] MEDS: HYDROXYCHLOROQUINE SULFATE 200 MG TABLET PO (09:22)
[2024-02-11] MEDS: CHOLECALCIFEROL 1,000 UNITS TABLET 1000 UNITS PO (09:22)
[2024-02-11] MEDS: ASPIRIN 81 MG ENTERIC TABLET PO (09:22)
[2024-02-11] MEDS: QUEtiapine FUMARATE 25 MG TABLET PO (09:22)
[2024-02-11] MEDS: FERROUS SULFATE 325 MG TABLET DR PO (09:22)
--- NOTE | 2024-02-11 09:54 | PM.IMPN ---
Progress Note: A&P Assessment and Plan (1) COPD exacerbation: Code(s): J44.1 - Chronic obstructive pulmonary disease with (acute) exacerbation Status: Acute (2) COPD (chronic obstructive pulmonary disease): Code(s): J44.9 - Chronic obstructive pulmonary disease, unspecified Status: Acute (3) Altered mental status: Code(s): R41.82 - Altered mental status, unspecified Status: Acute (4) Swelling of right upper extremity: Code(s): M79.89 - Other specified soft tissue disorders Status: Acute (5) Dementia, senile with delusions: Code(s): F03.92 - Unspecified dementia, unspecified severity, with psychotic disturbance Status: Acute (6) Vitamin D deficiency: Code(s): E55.9 - Vitamin D deficiency, unspecified Status: Acute (7) Atrial fibrillation: Code(s): I48.91 - Unspecified atrial fibrillation Status: Acute Plan This is a pleasant but anxious 78-year-old female with a history of COPD with chronic respiratory failure on home O2, cachexia, permanent resident of [facility], CAD status post CABG x3, osteoarthritis, hypertension, hypothyroidism, irritable bowel syndrome, SLE. History is taken from patient, sister Jess, and niece JOSE Elam. Reportedly the patient is brought in from her usual place of residence and she had been previously in good health, main complaint is shortness of breath although upon evaluation the patient denies shortness of breath or cough. She has a baseline dry cough. Denies chest pain as well. Believes that her symptoms are more related to anxiety. Subsequently her workup in the [facility] was widely negative. A chest x-ray demonstrating mild atelectasis, chest CT negative for PE and demonstrating severe emphysema. She was admitted on 02/08/2024 on 2 L nasal cannula. # acute COPD exacerbation # chronic hypoxic respiratory failure -status: Mild, resolved. -has a history COPD, patient reports chronic dry cough. Unclear what she is on in the half-way but she is only on 2 L here. dyspnea was very likely due to anxiety. received solumedrol and prednisone which have since been dc'ed. tiffanie prn. -ABG 02/08 7.5/37.4/100.8/28.7 -cachexia, likely pulmonary. Dietary supplements ordered. # anxiety and depression # senile dementia with paranoid delusions -status: Acute on chronic, improved -Having anxiety which can be causing her to appear short of breath. treat anxiety first. -spoke with sister Jess. sister wants the POA (niece Marialuisa) to continue making decisions as Jess is too old and taking care of other ill family members. Spoke with Marialuisa who reveals the pt has had paranoia for a long time now. this is an undertreated likely senile dementia with delusions. discussed the risks vs benefit profile of medications to which Marialuisa understood and agreed. Marialuisa is sending some records via fax. -on 02/08 the patient became very agitated and confused and spoke about dieing by making a knife. on 02/09 she has no real intent, does not even remember she said the aforementioned. on 02/10 she is much more calm. reports anxiety, but is improved and she is much more redirectable. she denies SI/HI, or hallucinations. safety contract requested, then sitter can be dc'ed and she can f/u with outpatient neuropsychiatry. safety contract must be made, seroquel can have parodoxical effect, causing suicidal ideations. -POA reports bad response to haldol, use prn antipsychotics extremely cautiously. physical restraints + 1 on 1 sitter + family redirection are to be used first as appropriate. -cont vilazodone at 10mg instead of 30mg (plan to wean 2/2 seroquel being started, and interaction with both seroquel and buspirone) -cont BRIDGE INSPECTOR xanax 0.25mg po bid, BRIDGE INSPECTOR buspirone 10mg po bid -seroquel 25mg po started on 02/08 in the PM, good response. 02/09 increase to seroquel 25mg po bid, continue to improve on this. daily EKG to monitor QT prolongat
[2024-02-11] MEDS: QUEtiapine FUMARATE 25 MG TABLET 50 MG PO (21:18)
[2024-02-12] VITALS (13 sets, daily range): BP systolic 138–147; BP diastolic 65–77; PULSE 73–104; RESP 16–19; TEMP 36.3–36.6; O2SAT 94–100
[2024-02-12 04:19] LABS: Hematocrit 29.5 % (37.0-47.0); Hemoglobin 8.9 g/dL (12.0-15.0); Mean Corpuscular HGB Conc 30.2 g/dl (32-36); Mean Corpuscular Hemoglobin 25.6 pg (26-34); Mean Platelet Volume 9.6 fl (7.4-10.4); Platelet Count Result 254 k/mm3 (150-375); Red Blood Count 3.47 M/mm3 (4.2-5.4); Red Cell Distribution Width 15.8 % (11.5-14.5); White Blood Count 5.7 K/mm3 (4.5-10.0)
[2024-02-12 04:34] LABS: Anion Gap 3 mmol/L (4-12); Blood Urea Nitrogen 22 mg/dL (7-17); Calcium 7.9 mg/dL (8.4-10.2); Carbon Dioxide 32 mmol/L (22-30); Chloride 100 mmol/L (98-107); Estimated CRCL calculation 43 ml/min; Estimated Glomerular Filt Rate > 60; Glucose 93 mg/dL (65-110); Magnesium 1.8 mg/dL (1.6-2.3); Potassium 3.8 mmol/L (3.4-5.0); Sodium 135 mmol/L (137-145)
--- NOTE | 2024-02-12 05:00 | ECG_ITS ---
Test Date: 2024-02-12 08:58:51 Measurements Intervals [place] Rate: 96 P: 81 OR: 135 QRS: 53 QRSD: 84 T: 55 QT: 362 QTc: 459 Interpretive Statements SINUS RHYTHM WITH OCCASIONAL SUPRAVENTRICULAR PREMATURE COMPLEXES NONSPECIFIC ST & T-WAVE ABNORMALITY- DIFFUSE LEADS BORDERLINE ECG Compared to ECG 02/11/2024 08:07:50 NO SIGNIFICANT CHANGE Electronically Signed On 02-12-2024 11:36:39 CDT by Romel Sprague D.O.
[2024-02-12] MEDS: LEVOTHYROXINE SODIUM 50 MCG TABLET PO (05:34)
[2024-02-12] MEDS: FLUTICASONE/UMECLIDIN/VILANTER 100-62.5-25 MCG ELLIPTA 1 PUFF INHALATION (08:18)
[2024-02-12] MEDS: CHOLECALCIFEROL 1,000 UNITS TABLET 1000 UNITS PO (08:23)
[2024-02-12] MEDS: LOSARTAN POTASSIUM 50 MG TABLET PO (08:23)
[2024-02-12] MEDS: HYDROXYCHLOROQUINE SULFATE 200 MG TABLET PO (08:23)
[2024-02-12] MEDS: ASPIRIN 81 MG ENTERIC TABLET PO (08:23)
[2024-02-12] MEDS: ALPRAZolam (*CRX) 0.25 MG TABLET PO (08:23)
[2024-02-12] MEDS: QUEtiapine FUMARATE 25 MG TABLET PO (08:24)
[2024-02-12] MEDS: FERROUS SULFATE 325 MG TABLET DR PO (08:24)
[2024-02-12] MEDS: busPIRone HCL 10 MG TABLET PO (08:24)
[2024-02-12] MEDS: ENOXAPARIN 40 MG/0.4 ML SYRINGE SUB-Q (08:30)
--- NOTE | 2024-02-12 11:25 | PCNFU ---
Nutrition Follow-Up Complete: Severe protein calorie malnutrition related to chronic COPD, loss of appetite as evidenced by weight loss 21%/8 months; intakes <75% needs >1 month; severe muscle wasting and fat loss Goal:Improve PO intake to 50% meals and supplements Pt is meeting goal. continue with current goal Pt current nutrition is Heart healthy, Ensure compact BID. Nutrition recommendation: Increase Ensure compact to TID Last recorded weight is 41.2 kg. Bowel Motility: +BM 02/07 Labs Reviewed: Hgb:8.9, HCT:29.5, NA:135, BUN:22, Cr:0.6 Meds Noted: lovenox Skin: WNL Additional Notes: Pt continues on a heart healthy diet, intake at 50-100% at this time. Ensure compact BID, will increase to TID. Monitoring intakes, weights, labs, supplement tolerance, plan of care Follow up in 3 days
[2024-02-12 12:49] LABS: Fractional Inspired Oxygen 28 %; HCO3 VBG 33.1 mEq/l (24.0-30.0); PCO2 VBG 59.7 mmHg (42.0-48.0); pH VBG 7.362 (7.300-7.400)
[2024-02-12 12:50] LABS: Device NASAL CANNULA; PO2 VBG < 27.0 mmHg (35.0-45.0)
--- NOTE | 2024-02-12 13:31 | PM.IMPN ---
Progress Note: A&P Assessment and Plan (1) COPD exacerbation: Code(s): J44.1 - Chronic obstructive pulmonary disease with (acute) exacerbation Status: Acute (2) COPD (chronic obstructive pulmonary disease): Code(s): J44.9 - Chronic obstructive pulmonary disease, unspecified Status: Acute (3) Altered mental status: Code(s): R41.82 - Altered mental status, unspecified Status: Acute (4) Swelling of right upper extremity: Code(s): M79.89 - Other specified soft tissue disorders Status: Acute (5) Dementia, senile with delusions: Code(s): F03.92 - Unspecified dementia, unspecified severity, with psychotic disturbance Status: Acute (6) Vitamin D deficiency: Code(s): E55.9 - Vitamin D deficiency, unspecified Status: Acute (7) Atrial fibrillation: Code(s): I48.91 - Unspecified atrial fibrillation Status: Acute Plan Magali Vega is a 78-year-old female with a history of COPD with chronic respiratory failure on home O2, cachexia, permanent resident of [facility], CAD status post CABG x3, osteoarthritis, hypertension, hypothyroidism, irritable bowel syndrome, SLE. History is taken from patient, sister Jess, and niece JOSE Elam. Reportedly the patient is brought in from her usual place of residence and she had been previously in good health, main complaint is shortness of breath although upon evaluation the patient denies shortness of breath or cough. She has a baseline dry cough. Denies chest pain as well. Believes that her symptoms are more related to anxiety. Subsequently her workup in the [facility] was widely negative. A chest x-ray demonstrating mild atelectasis Chest CT negative for PE and demonstrating severe emphysema. She was admitted on 02/08/2024 on 2 L nasal cannula. Acute and principal conditions Acute COPD exacerbation Chronic hypoxic respiratory failure -status: Mild, resolved. -has a history COPD, patient reports chronic dry cough. Unclear what she is on in the halfway but she is only on 2 L here. dyspnea was very likely due to anxiety. received solumedrol and prednisone which have since been dc'ed. tiffanie prn. -ABG 02/08 7.5/37.4/100.8/28.7 -cachexia, likely pulmonary. Dietary supplements ordered. Anxiety and depression Senile dementia with paranoid delusions -status: Acute on chronic, improved -Having anxiety which can be causing her to appear short of breath. treat anxiety first. -spoke with sister Jess. sister wants the POA (niece Marialuisa) to continue making decisions as Jess is too old and taking care of other ill family members. Spoke with Marialuisa who reveals the pt has had paranoia for a long time now. this is an undertreated likely senile dementia with delusions. discussed the risks vs benefit profile of medications to which Marialuisa understood and agreed. Marialuisa is sending some records via fax. -on 02/08 the patient became very agitated and confused and spoke about dieing by making a knife. on 02/09 she has no real intent, does not even remember she said the aforementioned. on 02/10 she is much more calm. reports anxiety, but is improved and she is much more redirectable. she denies SI/HI, or hallucinations. safety contract requested, then sitter can be dc'ed and she can f/u with outpatient neuropsychiatry. safety contract must be made, seroquel can have parodoxical effect, causing suicidal ideations. -POA reports bad response to haldol, use prn antipsychotics extremely cautiously. physical restraints + 1 on 1 sitter + family redirection are to be used first as appropriate. -cont vilazodone at 10mg instead of 30mg (plan to wean 2/2 seroquel being started, and interaction with both seroquel and buspirone) -cont SQL DATABASE ADMINISTRATOR xanax 0.25mg po bid, SQL DATABASE ADMINISTRATOR buspirone 10mg po bid -seroquel 25mg po started on 02/08 in the PM, good response. 02/09 increase to seroquel 25mg po bid, continue to improve on this. daily
--- NOTE | 2024-02-12 13:49 | ECG_ITS ---
Test Date: 2024-02-12 14:39:29 Measurements Intervals [place] Rate: 79 P: -27 OK: 114 QRS: 143 QRSD: 84 T: 69 QT: 385 QTc: 442 Interpretive Statements SINUS OR ECTOPIC ATRIAL RHYTHM WITH SHORT OK INTERVAL LIMB LEAD REVERSAL BASELINE ARTIFACT- I, II, AVR, AVL, AVF, V2-V3, V6 BORDERLINE ECG Compared to ECG 02/12/2024 08:58:51 Short OK interval now present Electronically Signed On 02-12-2024 15:15:31 CDT by Romel Sprague D.O.
[2024-02-12] MEDS: IPRATROPIUM 0.5 MG/ALBUTEROL SULFATE 2.5 MG AMPUL.NEB 3 ML INHALATION ×2 (14:08→21:07)
[2024-02-12] MEDS: QUEtiapine FUMARATE 25 MG TABLET 50 MG PO (20:07)
[2024-02-13] VITALS (12 sets, daily range): BP systolic 143–169; BP diastolic 56–72; PULSE 69–91; RESP 14–20; TEMP 36.3–37.5; O2SAT 82–100
[2024-02-13] MEDS: LEVOTHYROXINE SODIUM 50 MCG TABLET PO (05:33)
[2024-02-13 06:33] LABS: Alanine Aminotransferase 22 U/L (6-35); Albumin Level 3.4 g/dL (3.5-5.1); Alkaline Phosphatase 71 U/L (38-126); Anion Gap 3 mmol/L (4-12); Aspartate Amino Transferase 29 U/L (14-36); Bilirubin,Total 0.5 mg/dL (0.2-1.3); Blood Urea Nitrogen 17 mg/dL (7-17); Calcium 8.3 mg/dL (8.4-10.2); Carbon Dioxide 31 mmol/L (22-30); Chloride 101 mmol/L (98-107); Estimated CRCL calculation 53 ml/min; Estimated Glomerular Filt Rate > 60; Glucose 107 mg/dL (65-110); Potassium 3.8 mmol/L (3.4-5.0); Sodium 135 mmol/L (137-145)
[2024-02-13 06:34] LABS: Basophils Percent Auto 0.8 % (0.2-1.2); Eosinophils Absolute Auto 0.2 K/mm3 (0-0.3); Eosinophils Percent Auto 3.3 % (0-4.4); Hematocrit 30.7 % (37.0-47.0); Hemoglobin 9.4 g/dL (12.0-15.0); Immature Granulocyte Absolute 0.02 K/mm3 (0.00-0.031); Immature Granulocyte Percent A 0.4 % (0-0.5); Lymphocytes Absolute Auto 0.93 K/mm3 (0.9-3.2); Lymphocytes Percent Auto 19.2 % (18.3-44.2); Mean Corpuscular HGB Conc 30.6 g/dl (32-36); Mean Corpuscular Hemoglobin 26.1 pg (26-34); Mean Corpuscular Volume 85.3 fl (80-100); Mean Platelet Volume 10.1 fl (7.4-10.4); Monocytes Absolute Auto 0.4 K/mm3 (0.1-0.6); Monocytes Percent Auto 7.4 % (2.6-8.5); Neutrophils Absolute Auto 3.3 K/mm3 (1.3-6.7); Neutrophils Percent Auto 68.9 % (45.5-73.1); Platelet Count Result 264 k/mm3 (150-375); Red Cell Distribution Width 15.8 % (11.5-14.5); White Blood Count 4.9 K/mm3 (4.5-10.0)
[2024-02-13] MEDS: IPRATROPIUM 0.5 MG/ALBUTEROL SULFATE 2.5 MG AMPUL.NEB 3 ML INHALATION ×3 (07:23→20:55)
[2024-02-13] MEDS: FLUTICASONE/UMECLIDIN/VILANTER 100-62.5-25 MCG ELLIPTA 1 PUFF INHALATION (07:23)
[2024-02-13] MEDS: HYDROXYCHLOROQUINE SULFATE 200 MG TABLET PO (08:22)
[2024-02-13] MEDS: LOSARTAN POTASSIUM 50 MG TABLET PO (08:22)
[2024-02-13] MEDS: ASPIRIN 81 MG ENTERIC TABLET PO (08:22)
[2024-02-13] MEDS: ALPRAZolam (*CRX) 0.25 MG TABLET PO (08:22)
[2024-02-13] MEDS: QUEtiapine FUMARATE 25 MG TABLET PO (08:22)
[2024-02-13] MEDS: ENOXAPARIN 40 MG/0.4 ML SYRINGE SUB-Q (08:23)
[2024-02-13] MEDS: busPIRone HCL 10 MG TABLET PO (08:23)
--- NOTE | 2024-02-13 15:57 | PM.DS ---
DS: Admitting Diagnosis Discharge Date 02/13/24 Admitting Diagnosis 1. Acute exacerbation of chronic hypoxia 2. Behavioral disturbances. 3. A-fib, rate controlled. DS: Discharge Diagnosis Discharge Diagnosis (1) COPD exacerbation: Code(s): J44.1 - Chronic obstructive pulmonary disease with (acute) exacerbation Status: Acute (2) COPD (chronic obstructive pulmonary disease): Code(s): J44.9 - Chronic obstructive pulmonary disease, unspecified Status: Acute (3) Altered mental status: Code(s): R41.82 - Altered mental status, unspecified Status: Acute (4) Swelling of right upper extremity: Code(s): M79.89 - Other specified soft tissue disorders Status: Acute (5) Dementia, senile with delusions: Code(s): F03.92 - Unspecified dementia, unspecified severity, with psychotic disturbance Status: Acute (6) Vitamin D deficiency: Code(s): E55.9 - Vitamin D deficiency, unspecified Status: Acute (7) Atrial fibrillation: Code(s): I48.91 - Unspecified atrial fibrillation Status: Acute Plan Magali Vega is a 78-year-old female with a history of COPD with chronic respiratory failure on home O2, cachexia, permanent resident of [facility], CAD status post CABG x3, osteoarthritis, hypertension, hypothyroidism, irritable bowel syndrome, SLE. History is taken from patient, sister Jess, and niece JOSE Elam. Reportedly the patient is brought in from her usual place of residence and she had been previously in good health, main complaint is shortness of breath although upon evaluation the patient denies shortness of breath or cough. She has a baseline dry cough. Denies chest pain as well. Believes that her symptoms are more related to anxiety. Subsequently her workup in the [facility] was widely negative. A chest x-ray demonstrating mild atelectasis Chest CT negative for PE and demonstrating severe emphysema. She was admitted on 02/08/2024 on 2 L nasal cannula. Acute and principal conditions Acute COPD exacerbation Chronic hypoxic respiratory failure -status: Mild, resolved. -has a history COPD, patient reports chronic dry cough. Unclear what she is on in the long-term but she is only on 2 L here. dyspnea was very likely due to anxiety. received solumedrol and prednisone which have since been dc'ed. duonebs prn. -ABG 02/08 7.5/37.4/100.8/28.7 -cachexia, likely pulmonary. Dietary supplements ordered. Anxiety and depression Senile dementia with paranoid delusions -status: Acute on chronic, improved -Having anxiety which can be causing her to appear short of breath. treat anxiety first. -spoke with sister Jess. sister wants the POA (niece Marialuisa) to continue making decisions as Jess is too old and taking care of other ill family members. Spoke with Marialuisa who reveals the pt has had paranoia for a long time now. this is an undertreated likely senile dementia with delusions. discussed the risks vs benefit profile of medications to which Marialuisa understood and agreed. Marialuisa is sending some records via fax. -on 02/08 the patient became very agitated and confused and spoke about dieing by making a knife. on 02/09 she has no real intent, does not even remember she said the aforementioned. on 02/10 she is much more calm. reports anxiety, but is improved and she is much more redirectable. she denies SI/HI, or hallucinations. safety contract requested, then sitter can be dc'ed and she can f/u with outpatient neuropsychiatry. safety contract must be made, seroquel can have parodoxical effect, causing suicidal ideations. -POA reports bad response to haldol, use prn antipsychotics extremely cautiously. physical restraints + 1 on 1 sitter + family redirection are to be used first as appropriate. -cont vilazodone at 10mg instead of 30mg (plan to wean 2/2 seroquel being started, and interaction with both seroquel and buspirone) -cont BILINGUAL ADMINISTRATIVE ASSISTANT xanax
[2024-02-13 17:09] LABS: SARS-CoV-2 RNA PCR Negative (Negative)
== END 2024-02-13 22:00 | DRG 189 ==
LOC: ANHED 18:39 → ANHIMU 18:59 → ANH3MED 02-09 13:05 → ANH3MEDSUR 02-09 18:44
PROVIDERS: Admitting Provider General Practice; Emergency Provider Emergency Medicine; PCP Internal Medicine; Visit Provider Internal Medicine
DX: J96.21 Acute and chronic respiratory failure with hypoxia (principal); E43 Unspecified severe protein-calorie malnutrition; J44.1 Chronic obstructive pulmonary disease with (acute) exacerbation; G93.40 Encephalopathy, unspecified; F03.92 Unspecified dementia, unspecified severity, with psychotic disturbance; R64 Cachexia; Z68.1 Body mass index [BMI] 19.9 or less, adult; F22 Delusional disorders; R45.1 Restlessness and agitation; M15.9 Polyosteoarthritis, unspecified; M32.9 Systemic lupus erythematosus, unspecified; I25.10 Atherosclerotic heart disease of native coronary artery without angina pectoris; E03.9 Hypothyroidism, unspecified; K58.9 Irritable bowel syndrome, unspecified; M81.0 Age-related osteoporosis without current pathological fracture; M79.89 Other specified soft tissue disorders; F41.8 Other specified anxiety disorders; E55.9 Vitamin D deficiency, unspecified; D64.9 Anemia, unspecified; Z66 Do not resuscitate; Z79.82 Long term (current) use of aspirin; Z99.81 Dependence on supplemental oxygen; Z95.1 Presence of aortocoronary bypass graft; Z98.42 Cataract extraction status, left eye; Z98.41 Cataract extraction status, right eye
CPT/HCPCS: 36415; 36600; 70450; 71046; 71275; 80048; 80053; 80307; 81001; 82140; 82306; 82375; 82607; 82728; 82746; 82803; 82805; 83050; 83540; 83550; 83735; 84145; 84439; 84443; 84480; 85025; 85027; 86140; 86592; 87040; 87635; 87637; 93005; 93971; 94640; 96372; 96374; 96376; 97161; 97165; 99284; 99285; A9270; G0378; J1650; J2919; J7512; Q9967